=== PATIENT | female | born 1970 | race Caucasian/White ===

== ENCOUNTER 2021-11-05 09:17 | Outpatient (CLI) | payer MEDICAID, SELFPAY ==
--- NOTE | 2021-11-05 09:33 | XR_ITS ---
WS: [id number] XR cervical spine 3V* [id number] REASON FOR EXAM: chronic neck pain FINDINGS: Relatively normal cervical spine curvature. No vertebral body abnormality. Normal odontoid. Mild narrowing of the C4-C5 disc space with small anterior and uncinate osteophytes. Moderate narrowing of the C5-C6 disc space with small anterior and uncinate osteophytes. There is 2 mm of anterolisthesis of C5 in relation to C4 and C6 in relation to C5. Normal facet joint alignment. Mild degenerative facet changes C5-C7. XR/XR cervical spine 3V* [id number] IMPRESSION: Degenerative spondylosis as above.
--- NOTE | 2021-11-05 09:33 | XR_ITS ---
WS: [id number] XR thoracic spine 2V [id number] REASON FOR EXAM: chronic thoracic back pain FINDINGS: Relatively normal thoracic spine curvature. No significant vertebral body abnormality. Mild narrowing of the disc spaces with endplate sclerosis and small marginal osteophytes in the upper and mid thoracic spine. XR/XR thoracic spine 2V [id number] IMPRESSION: Degenerative spondylosis in the mid and upper thoracic spine.
== END 2021-11-05 09:18 | disposition home or self-care (01) ==
LOC: RAD 09:20
PROVIDERS: PCP Family Medicine; Visit Provider Family Medicine
DX: M47.814 Spondylosis without myelopathy or radiculopathy, thoracic region (principal); M47.812 Spondylosis without myelopathy or radiculopathy, cervical region
CPT/HCPCS: 72040; 72070

== ENCOUNTER → 2021-11-26 11:52 | Outpatient (BNVA) | payer MEDICAID, SELFPAY | PROVIDERS: PCP Family Medicine; Visit Provider Anesthesiology Pain Medicine | DX: M54.16 Radiculopathy, lumbar region (principal); M54.6 Pain in thoracic spine; G89.29 Other chronic pain; M54.12 Radiculopathy, cervical region; M47.812 Spondylosis without myelopathy or radiculopathy, cervical region | CPT/HCPCS: 72110 ==

== ENCOUNTER → 2022-01-07 09:42 | Outpatient (BNVA) | payer MEDICAID, SELFPAY | PROVIDERS: PCP Family Medicine; Visit Provider Family Medicine | DX: H69.82 Other specified disorders of Eustachian tube, left ear (principal); I25.5 Ischemic cardiomyopathy | CPT/HCPCS: 80053; 80061; 82728; 83550; 83735; 85025 ==

== ENCOUNTER 2022-01-20 15:17 | Emergency (ER) | payer MEDICAID, SELFPAY ==
[2022-01-20 15:25] VITALS: BP 130/79; PULSE 111; RESP 16; TEMP 36.8; O2SAT 96; BMI 30.8
--- NOTE | 2022-01-20 16:00 | ED_ITS ---
HPI - Back Pain/Injury General: Chief Complaint: Back Pain/Injury Stated Complaint: back pain Time Seen by Provider: 01/20/22 15:31 History of Present Illness: Patient is a 51-year-old female comes to the ED with low back pain. Patient has chronic back pain and sees Dr. Byers with pain management. He is in the process of getting patient set up with some out patient imaging of spine. Today she was at her doctor's office and getting an EKG done and when she went to stand up she pulled muscle in her lower back. She now has 10 out of 10 pain on the right side of lower back. Pain radiates down into right leg. Denies any bladder or bowel incontinence, pelvic anesthesia or any weakness to lower extremities. Associated symptoms: Deny abdominal pain, chills, dysuria, fatigue, fever(s), hematuria, nausea or vomiting Review of Systems Const: Denies: fever(s), chills or fatigue Eyes: Denies: change in vision or eye discomfort ENMT: Denies: throat pain, odynophagia, nasal discharge or nasal congestion Card: Denies: chest pain, palpitations, edema, swelling of feet/ankles, d yspnea on exertion or orthopnea Resp: Denies: dyspnea, productive cough or non-productive cough GI: Denies: abdominal pain, nausea, vomiting, diarrhea, constipation or hematochezia : Denies: flank pain, dysuria or hematuria Musc: Reports: back pain; Denies: neck pain or extremity swelling Skin/Breast: Denies: rash or new lesions Neuro: Denies: headache(s), numbness in extremities or weakness in extremities PFSH ED PFSH: Medical History Acute on chronic respiratory failure with hypoxia and hypercapnia COPD (chronic obstructive pulmonary disease) Ischemic cardiomyopathy MDD (major depressive disorder) Non Hodgkin's lymphoma In remission since 2004 NSTEMI (non-ST elevated myocardial infarction) Osteoarthritis Osteopenia Psychiatric care Tachycardia Surgical History History of aortic valve replacement History of coronary artery bypass graft x 3 History of lymph node biopsy History of mitral valve replacement Family History Other Cancer Chronic kidney disease (CKD) Hyperlipidemia Hypertension Psychiatric illness Stroke Suicide Social History Smoking and tobacco status: former smoker Quit status (tobacco): has quit using tobacco Year quit tobacco: 2017 Second hand smoke exposure: No Smoking risk assessment/counseling performed?: No Alcohol intake: current Alcohol intake frequency: holidays/special occasions only Alcohol type: hard liquor Desire information about alcohol rehabilitation?: No Counseling given: No Desire information about substance/drug rehabilitation?: No Counseling given: No Physical Exam Const: COMMON NORMALS: no acute distress, patient oriented x3 and alert GENERAL APPEARANCE: cooperative HENMT: COMMON NORMALS: normocephalic HEAD & SCALP: normocephalic MOUTH: Normal oral and palatal mucosa present THROAT: posterior oropharynx normal and uvula midline Neck/C-Spine: COMMON NORMALS: supple GENERAL: Yes normal visual inspection Resp: COMMON NORMALS: normal respiratory effort, No retractions, No use of accessory muscles and clear to auscultation bilaterally AUSCULTATION: clear to auscultation bilaterally Cardio: COMMON NORMALS: regular rate, regular rhythm, S1 normal heart sound present, S2 normal heart sound present, No gallops present (Cardio), No clicks present (Cardio), No murmurs present (Cardio) and Peripheral pulses 2+ throughout RATE: regular rate RHYTHM: regular rhythm HEART SOUNDS: S1 normal heart sound present and S2 normal heart sound present PERIPHERAL PULSES: Peripheral pulses 2+ throughout GI: COMMON NORMALS: Normal to inspection, nondistended, normoactive bowel sounds present, Soft to palpation, non-tender and no masses PALPATION: Yes Soft to palpation : COMMON NORMALS: Yes no CVA tenderness BLADDER/KIDNEY EXAM: Yes no CVA tenderness Back/Pelvis: COMMON NORMALS: no CVA tenderness LUMBAR SPINE/LOWER BACK: Yes pain with ROM, No lumbar spinal tenderness and Yes paraspinal muscle tenderness Lumbar paraspinal muscle tenderness: right Right lumbar paraspinal muscle tenderness: L4 and L5 Extremity: COMMON NORMALS: normal to inspection Neuro: COMMON NORMALS: patient oriented x3 SENSORIUM/ORIENTATION: Yes alert GAIT: Yes Normal gait present Skin: GENERAL SKIN EXAM: dry skin Course Vital Signs: Vital signs: Vital Signs Temperature 98.2 F 01/20/22 15:25 Pulse Rate 111 H 01/20/22 15:25 Respiratory Rate 16 01/20/22 16:43 Blood Pressure 130/79 01/20/22 15:25 Pulse Oximetry 96 01/20/22 15:25 Oxygen Delivery Me thod 01/20/22 15:25 MDM - Back Pain/Injury Medical Decision Making Patient is a 51-year-old female comes to the ED with low back pain. Patient has chronic back pain and sees Dr. Byers with pain management. He is in the process of getting patient set up with some out patient imaging of spine. Today she was at her doctor's office and getting an EKG done and when she went to stand up she pulled muscle in her lower back. She now has 10 out of 10 pain on the right side of lower back. Pain radiates down into right leg. Denies any bladder or bowel incontinence, pelvic anesthesia or any weakness to lower extremities. Vitals are stable. Patient has no lumbar spinal tenderness. Has pain with range of motion of the lumbar spine. She does have some right paraspinal muscle tenderness to palpation. Rest of exam is benign. Patient was given a dose of morphine, Decadron and Norflex here in the ED. Her symptoms improved and she was feeling a lot better. She was given a dose of Toradol here in the ED as well and diagnosed with low back pain rating down the leg. She was sent home with a prescription for Celebrex, Medrol Dosepak and a muscle relaxer. Told to follow-up with her PCP or Dr. Byers pain management or neck scheduled appointment. Return to ED precautions given. Patient understood and agreed with plan. Discharge Plan Discharge Patient Disposition: Home Clinical Impression: Low back pain radiating down leg Condition: Stable Prescriptions: New Celebrex 100 mg capsule 100 mg PO BID PRN (Reason: pain) Qty: 30 0RF Medrol (Dane) 4 mg tablets,dose pack See Rx Instructions .ROUTE .COMPLEX Qty: 21 0RF Rx Instructions: orally per package directions methocarbamol 750 mg tablet 750 mg PO Q8H PRN (Reason: muscle spasms and pain) Qty: 30 0RF No Action (DME) Portable O2 See Rx Instructions .Route .MEDSUPPLY Qty: 1 0RF Rx Instructions: As directed budesonide-formoterol [Symbicort] 160-4.5 mcg/actuation HFA aerosol inhaler 2 puff inhalation BID Qty: 10.2 2RF Rx Instructions: 340 B Spiriva with HandiHaler 18 mcg capsule, w/inhalation device 1 cap inhalation DAILY Qty: 60 2RF Rx Instructions: puncture 1 cap using device; one dose = 2 inhalations 340 B aspirin [Adult Low Dose Aspirin] 81 mg tablet,delayed release (DR/EC) 81 mg PO DAILY furosemide 40 mg tablet 40 mg PO DAILY Qty: 90 3RF magnesium oxide 400 mg magnesium tablet 400 mg PO DAILY Qty: 90 3RF metoprolol succinate 50 mg tablet extended release 24 hr 50 mg PO BID Qty: 180 3RF Entresto 49-51 mg tablet 1 tab PO BID Qty: 180 3RF atorvastatin 80 mg tablet 80 mg PO DAILY Qty: 90 3RF mirtazapine 7.5 mg tablet 7.5 mg PO .HS Qty: 30 1RF fluticasone propionate [Flonase Allergy Relief] 50 mcg/actuation spray,suspension 2 spray intranasal DAILY Qty: 16 2RF Rx Instructions: administer into each nostril omeprazole 20 mg capsule,delayed release(DR/EC) 20 mg PO DAILY Qty: 30 0RF sertraline [Zoloft] 100 mg tablet 100 mg PO DAILY Qty: 30 1RF ferrous gluconate 324 mg (38 mg iron) tablet 324 mg PO BID Qty: 180 0RF quetiapine 100 mg tablet See Rx Instructions .ROUTE .COMPLEX Qty: 30 1RF Dose Instruction: TAKE ONE TABLET BY MOUTH AT BEDTIME Rx Instructions: TAKE ONE TABLET BY MOUTH AT BEDTIME Discharge Orders: Discharge ED (Routine); Ordered 01/20/22 Ordered By: Ubaldo Arcos Referrals: Humera Meza DO [Primary Care Provider] - Discharge Diet: Regular Discharge Activity: Increase activity as tolerated Patient Instructions: Low Back Strain (ED), Lumbar Radiculopathy (ED) Activity Restrictions/Additional Instructions: Follow-up with medical provider as directed in the next 5 to 7 days for reevaluation. Take medications as prescribed. Return to the ER or your medical provider if condition worsens. Please read and understand discharge instruct ions. Thank you for choosing [facility] for your healthcare needs today. Please realize this is an emergency room and that we are providing you with a medical screening exam and this may not be complete and all inclusive of all the testing and or work up that you may need to determine your ailment or severity of your illness. It is very important that you follow up as instructed or that you return to the Emergency Department should you have concerns or if your condition changes or worsens in any way. Coding Level of Care Code ED Property Economist for [facility] [place] Exam Comprehensive
[2022-01-20 16:43] VITALS: RESP 16
[2022-01-20] MEDS: dexamethasone 10 mg/mL INJ IVP (16:43)
[2022-01-20] MEDS: morphine 4 mg/mL SDV 1 mL IVP (16:43)
[2022-01-20] MEDS: orphenadrine 30 mg/mL Inj 2 mL 60 MG IVP (16:44)
[2022-01-20] MEDS: ketorolac 30 mg/mL INJ IVP (17:43)
== END 2022-01-20 17:53 | disposition home or self-care (01) ==
PROVIDERS: Emergency Provider Physician Assistant; PCP Family Medicine
DX: M54.50 Low back pain, unspecified (principal); Z79.82 Long term (current) use of aspirin; J44.9 Chronic obstructive pulmonary disease, unspecified; Z85.72 Personal history of non-Hodgkin lymphomas; Z95.1 Presence of aortocoronary bypass graft; I25.2 Old myocardial infarction; Z87.891 Personal history of nicotine dependence
CPT/HCPCS: 96374; 96375; 99284; J1100; J1885; J2270; J2360

== ENCOUNTER 2022-01-29 20:26 | Emergency (ER) | payer MEDICAID, SELFPAY ==
[2022-01-29 20:30] VITALS: PULSE 110; RESP 16; TEMP 36.7; O2SAT 97; BMI 30.4
--- NOTE | 2022-01-29 20:52 | W.ED.NECK ---
HPI - Neck Pain/Injury General: Chief Complaint: Neck Pain/Injury Stated Complaint: neck pain Time Seen by Provider: 01/29/22 20:48 History of Present Illness: 51-year-old female comes in today for complaints of exacerbation of chronic neck pain. Patient reports being without medication for her chronic pain. And is waiting to get into pain management. Patient appears in moderate to severe pain. Patient is guarded with movement of the neck. Patient denies any fever or vomiting. Patient is scheduled for further evaluation of the neck with a CT scan and production painter. Patient denies any recent falls or injury. Patient appears nontoxic. Associated symptoms: Denies nausea Review of Systems Const: Denies: fever(s) Resp: Denies: dyspnea GI: Denies: nausea or vomiting Musc: Reports: neck pain PFSH ED PFSH: Medical History (Updated 01/29/22 @ 21:00 by TU Lance) Acute on chronic respiratory failure with hypoxia and hypercapnia CAD (coronary artery disease) COPD (chronic obstructive pulmonary disease) Hyperlipidemia Ischemic cardiomyopathy MDD (major depressive disorder) Non Hodgkin's lymphoma In remission since 2004 Osteoarthritis Osteopenia Psychiatric care Tachycardia Surgical History (Updated 01/23/22 @ 18:10 by Rachna Ramos MD) History of aortic valve replacement History of coronary artery bypass graft x 3 History of lung biopsy History of lymph node biopsy Status post mitral valve annuloplasty Family History Other Cancer Chronic kidney disease (CKD) Hyperlipidemia Hypertension Psychiatric illness Stroke Suicide Social History Smoking and tobacco status: former smoker Quit status (tobacco): has quit using tobacco Year quit tobacco: 2017 Second hand smoke exposure: No Smoking risk assessment/counseling performed?: No Alcohol intake: current Alcohol intake frequency: holidays/special occasions only Alcohol type: hard liquor Desire information about alcohol rehabilitation?: No Counseling given: No Desire information about substance/drug rehabilitation?: No Counseling given: No Physical Exam Const: COMMON NORMALS: alert HENMT: COMMON NORMALS: atraumatic HEAD & SCALP: atraumatic Eye: GENERAL EYE: appearance normal, both eyes and all related structures Neck/C-Spine: CERVICAL SPINE: No Cervical spine tenderness and Yes Paracervical muscle tenderness Resp: COMMON NORMALS: normal respiratory effort Cardio: COMMON NORMALS: regular rate RATE: regular rate GI: AUSCULTATION: Yes normoactive bowel sounds : COMMON NORMALS: Yes no CVA tenderness BLADDER/KIDNEY EXAM: Yes no CVA tenderness Back/Pelvis: COMMON NORMALS: no CVA tenderness Extremity: COMMON NORMALS: full ROM Neuro: SENSORIUM/ORIENTATION: Yes alert Skin: COMMON NORMALS: turgor normal GENERAL SKIN EXAM: turgor normal Course Vital Signs: Vital signs: Vital Signs Temperature 98.0 F 01/29/22 20:30 Pulse Rate 110 H 01/29/22 20:30 Respiratory Rate 16 01/29/22 20:30 Pulse Oximetry 97 01/29/22 20:30 Oxygen Delivery Me thod 01/29/22 20:30 MDM - Neck Pain/Injury Medical Decision Making 51-year-old female comes in today with uncontrolled neck pain. Patient has been using [id number]-[id number] Tylenol with minimal relief. Patient has been prescribed tramadol in the past but it does not work for her. Patient is scheduled to follow-up with production painter and has imaging scheduled for the . On exam patient has muscle tenderness of the cervical spine. Patient has decreased range of motion due to pain. Respirations are even lungs are clear to auscultation. Abdomen soft nontender. Bilateral tympanic membranes are dull without any redness and decreased mobility. Differential diagnosis includes but not limited to exacerbation of chronic pain, intervertebral disc disease, facet arthropathy, malingering. Patient was given 10 mg of dexamethasone for inflammation. Patient was also given a dose of ketorolac for further pain and inflammation. Patient was written for a prescription for hydrocodone 1 every 6 hours as needed for pain and discomfort number 14 tablets with no refills. Patient reported understanding of care plan and need for follow-up or return to the ER. Patient was also written for diclofenac 75 mg 1 tablet twice a day and instructed to only use the medication with acetaminophen and no other pain medication unless directed by your healthcare provider. Discharge Plan Discharge Patient Disposition: Home Clinical Impression: Neck pain Otitis media, serous Qualifiers: Chronicity: unspecified Laterality: bilateral Qualified Code(s): H65.93 - Unspecified nonsuppurative otitis media, bilateral Condition: Stable Prescriptions: New diclofenac sodium 75 mg tablet,delayed release (DR/EC) 75 mg PO BID Qty: 20 0RF hydrocodone-acetaminophen 5-325 mg tablet 1 tab PO Q6H PRN (Reason: pain) Qty: 14 0RF No Action (DME) Portable O2 See Rx Instructions .Route .MEDSUPPLY Qty: 1 0RF Rx Instructions: As directed budesonide-formoterol [Symbicort] 160-4.5 mcg/actuation HFA aerosol inhaler 2 puff inhalation BID Qty: 10.2 2RF Rx Instructions: 340 B Spiriva with HandiHaler 18 mcg capsule, w/inhalation device 1 cap inhalation DAILY Qty: 60 2RF Rx Instructions: puncture 1 cap using device; one dose = 2 inhalations 340 B aspirin [Adult Low Dose Aspirin] 81 mg tablet,delayed release (DR/EC) 81 mg PO DAILY furosemide 40 mg tablet 40 mg PO DAILY Qty: 90 3RF magnesium oxide 400 mg magnesium tablet 400 mg PO DAILY Qty: 90 3RF metoprolol succinate 50 mg tablet extended release 24 hr 50 mg PO BID Qty: 180 3RF Entresto 49-51 mg tablet 1 tab PO BID Qty: 180 3RF atorvastatin 80 mg tablet 80 mg PO DAILY Qty: 90 3RF mirtazapine 7.5 mg tablet 7.5 mg PO .HS Qty: 30 1RF fluticasone propionate [Flonase Allergy Relief] 50 mcg/actuation spray,suspension 2 spray intranasal DAILY Qty: 16 2RF Rx Instructions: administer into each nostril omeprazole 20 mg capsule,delayed release(DR/EC) 20 mg PO DAILY Qty: 30 0RF sertraline [Zoloft] 100 mg tablet 100 mg PO DAILY Qty: 30 1RF ferrous gluconate 324 mg (38 mg iron) tablet 324 mg PO BID Qty: 180 0RF quetiapine 100 mg tablet See Rx Instructions .ROUTE .COMPLEX Qty: 30 1RF Dose Instruction: TAKE ONE TABLET BY MOUTH AT BEDTIME Rx Instructions: TAKE ONE TABLET BY MOUTH AT BEDTIME Celebrex 100 mg capsule 100 mg PO BID PRN (Reason: pain) Qty: 30 0RF Medrol (Dane) 4 mg tablets,dose pack See Rx Instructions .ROUTE .COMPLEX Qty: 21 0RF Rx Instructions: orally per package directions methocarbamol 750 mg tablet 750 mg PO Q8H PRN (Reason: muscle spasms and pain) Qty: 30 0RF Discharge Orders: Discharge ED (Routine); Ordered 01/29/22 Ordered By: Lev Watt Referrals: Humera Meza DO [Primary Care Provider] - Discharge Diet: Usual diet Discharge Activity: Increase activity as tolerated Activity Restrictions/Additional Instructions: Use medication as prescribed. Take diclofenac 75 mg 1 tablet twice a day for the next 10 days. This will help with pain and inflammation. Use acetaminophen as needed for breakthrough pain. Use hydrocodone 1 tablet every 6 hours as needed for severe pain. Only use hydrocodone if you are not able to control the pain with diclofenac or acetaminophen. Do not use any other pain medications with these medications. You may use [id number] menthol rubs for further pain relief. Or ice or heat pad for further pain relief. Follow-up with primary care or specialist for further instruction and evaluation and treatment. Return to ER for new concerns. Coding Level of Care Code ED Technical Sales Support Specialist for [facility] [place]
[2022-01-29] MEDS: HYDROcodone-acetaminophen 10-325 mg Tablet 1 TAB PO (21:00)
[2022-01-29] MEDS: ketorolac 30 mg/mL INJ IM (21:01)
[2022-01-29] MEDS: dexamethasone 10 mg/mL INJ IM (21:01)
== END 2022-01-29 21:11 | disposition home or self-care (01) ==
PROVIDERS: Emergency Provider Nurse Practitioner Family; PCP Family Medicine
DX: M54.2 Cervicalgia (principal); H65.93 Unspecified nonsuppurative otitis media, bilateral; Z79.82 Long term (current) use of aspirin; Z87.891 Personal history of nicotine dependence; I25.10 Atherosclerotic heart disease of native coronary artery without angina pectoris; J44.9 Chronic obstructive pulmonary disease, unspecified; E78.5 Hyperlipidemia, unspecified; Z85.72 Personal history of non-Hodgkin lymphomas; Z95.1 Presence of aortocoronary bypass graft
CPT/HCPCS: 96372; 99284; J1100; J1885

== ENCOUNTER 2022-02-04 15:17 | Outpatient (CLI) | payer MEDICAID, SELFPAY ==
--- NOTE | 2022-02-04 16:00 | CT_ITS ---
WS: [id number] CT CERVICAL SPINE HISTORY: M54.12 - Radiculopathy, cervical region TECHNIQUE: Contiguous 2.5 mm axial imaging performed through the entire cervical spine. Sagittal and coronal reformats also performed. All CT scans at [facility] use at least one of these dose o ptimization techniques: automated exposure control; mA and/or kV adjustment per patient size (include s targeted exams where dose is matched to clinical indication); or iterative reconstruction. DLP: 289.47 mGy.cm COMPARISON: Cervical radiographs 11/05/2021 C5 retrolisthesis by 2.4 mm. The remaining cervical vertebral bodies are normally aligned. Mild disc space narrowing at C5-6. No cervical spine fracture. Craniocervical junction is normally aligned. Lat eral masses of C1 and C2 are aligned and the odontoid intact. C2-C3: Shallow central disc protrusion. No stenosis. C3-C4: Small central disc protrusion with no stenosis. C4-C5: Normal. C5-C6: Osteophytic ridging around the vertebral bodies with mild encroachment along the ventral theca l sac. No high-grade stenosis. C6-C7: Broad-based RIGHT paracentral disc protrusion. No significant encroachment or stenosis. Mild f acet joint arthritis. C7-T1: Small central disc protrusion. Biapical pleural thickening greatest on the RIGHT with paraseptal emphysematous disease. CT/CT cervical spin wo con* [id number] IMPRESSION: 1. No high-grade central or foraminal stenosis. 2. C5 retrolisthesis by 2.4 mm with disc space narrowing at C5-6. 3. Small central disc protrusions at C2-3 and C3-4. 4. Broad-based RIGHT paracentral disc protrusion at C6-7. No significant steno sis.
== END 2022-02-04 15:18 | disposition home or self-care (01) ==
LOC: RAD 15:18
PROVIDERS: PCP Family Medicine; Visit Provider Anesthesiology Pain Medicine
DX: M54.12 Radiculopathy, cervical region (principal); M50.21 Other cervical disc displacement, high cervical region
CPT/HCPCS: 72125

== ENCOUNTER 2022-03-09 06:10 | Outpatient (CLI) | payer MEDICAID, SELFPAY ==
--- NOTE | 2022-03-09 06:30 | USCV_ITS ---
Nurys Patel Age: 51 Gender: F : 1970 Exam Date: 03/09/2022 06:24 Ordering Phys: Rachna Ramos MD ([email or web address]) Technologist: Marquis Rodriguez Exam Location: [facility] [place] Indication: History of bio AVR, mitral valve repair BP: 130 / 85 HR: 98 Rhythm: Sinus Technical Quality: Adequate MEASUREMENTS (Male / Female) Normal Values 2D ECHO LV Diastolic Diameter PLAX 3.2 cm 4.2 - 5.9 / 3.9 - 5.3 cm LV Systolic Diameter PLAX 1.9 cm IVS Diastolic Thickness 1.1 cm 0.6 - 1.0 / 0.6 - 0.9 cm IVS Systolic Thickness 1.1 cm LVPW Diastolic Thickness 1.0 cm 0.6 - 1.0 / 0.6 - 0.9 cm LVPW Systolic Thickness 1.4 cm LVOT Diameter 1.8 cm LV Ejection Fraction 2D Teich 70.9 % LV Ejection Fraction MOD 2C 57.4 % LV Ejection Fraction 2C AL 58.2 % LA Diameter 3.1 cm IVC Diameter 1.5 cm M-MODE Aortic Annulus Diameter 2.5 cm LA Ao Ratio MM 1.4 MV E Point Septal Separation 0.8 cm DOPPLER AV Peak Velocity 279.0 cm/s LVOT Peak Velocity 94.0 cm/s AV Area Cont Eq vti 0.9 cm squared AV Area Cont Eq pk 0.8 cm squared MV Area PHT 5.0 cm squared Mitral E to A Ratio 1.5 MV E' Velocity 81.0 cm/s Mitral E to MV E' Ratio 11.7 Mitral E to LV E' Lateral Ratio 10.3 Mitral E to LV E' Septal Ratio 13.7 TR Peak Velocity 213.0 cm/s TR Peak Gradient 18.1 mmHg TV Peak E Velocity 113.0 cm/s Right Atrial Pressure 3.0 mmHg Pulmonary Artery Systolic Pressu 21.1 mmHg RV Acceleration Time 0.1 s FINDINGS Left Ventricle Normal left ventricular cavity size and systolic function. Normal left ventricular wall thickness. Left ventricular ejection fraction is estimated at 55%. No regional wall motion abnormalities. Abnormal (paradoxical) septal motion consistent with postoperative status. Right Ventricle Normal right ventricular size and systolic function. Right ventricular systolic pressure 29 mmHg. Right Atrium Normal right atrial size. Left Atrium Mildly increased left atrial size. Mitral Valve Severe mitral annular calcification. Moderately thickened mitral valve. Status post mitral valve repair. Trace mitral valve regurgitation. Aortic Valve S/p bioprosthetic aortic valve replacement. Peak velocity 2.5 m/s, peak gradient 26 m mercury, mean gradient 13 mmHg. No significant valvular or perivalvular regurgitation. Tricuspid Valve Structurally normal tricuspid valve. Trace tricuspid valve regurgitation. Pulmonic Valve Pulmonic valve not well visualized. No pulmonary valve stenosis. Pericardium No pericardial effusion. Aorta Normal-sized aortic root. IVC Inferior vena cava not visualized. CONCLUSIONS 1. Normal left ventricular cavity size and systolic function. Left ventricular ejection fraction is estimated at 55 %. No regional wall motion abnormalities. 2. S/p bioprosthetic aortic valve replacement. Peak velocity 2.5 m/s, peak gradient 26 m mercury, mean gradient 13 mmHg. No significant valvular or perivalvular regurgitation. 3. Status post mitral valve repair. Trace mitral valve regurgitation. 4. No prior similar studies to compare. Rachna Ramos MD (Electronically Signed) Final Date: 15 March 2022 18:51 S
== END 2022-03-09 06:11 | disposition home or self-care (01) ==
LOC: RAD 06:11
PROVIDERS: PCP Family Medicine; Visit Provider Internal Medicine Cardiovascular Disease
DX: I25.5 Ischemic cardiomyopathy (principal); R06.02 Shortness of breath; Z95.2 Presence of prosthetic heart valve; I34.0 Nonrheumatic mitral (valve) insufficiency
CPT/HCPCS: 93306

== ENCOUNTER 2022-05-13 11:16 | Outpatient (RCR) | payer MEDICAID, SELFPAY | END 2022-05-25 23:59 | disposition home or self-care (01) | LOC: SPT 11:16 | PROVIDERS: PCP Family Medicine; Visit Provider Anesthesiology Pain Medicine | DX: M54.6 Pain in thoracic spine (principal); G89.29 Other chronic pain | CPT/HCPCS: 97110; 97162 ==

== ENCOUNTER 2022-05-26 06:00 | Outpatient (RCR) | payer MEDICAID, SELFPAY | END 2022-06-25 23:59 | disposition home or self-care (01) | LOC: SPT 06:00 | PROVIDERS: PCP Family Medicine; Visit Provider Anesthesiology Pain Medicine | DX: M54.6 Pain in thoracic spine (principal); G89.29 Other chronic pain | CPT/HCPCS: 97110 ==

== ENCOUNTER 2022-05-31 13:59 | Outpatient (CLI) | payer MEDICAID, SELFPAY ==
--- NOTE | 2022-05-31 14:09 | MM_ITS ---
WS: [id number] BILATERAL 3D TOMOSYNTHESIS DIGITAL SCREENING MAMMOGRAPHY WITH CAD CLINICAL INFORMATION: SCREENING HISTORY: Screening mammogram. No current complaints. COMPARISON: None. TECHNIQUE: Bilateral CC and MLO views. FINDINGS: Chronic calcified port LEFT upper chest with calcified tubing Scattered fibroglandular densities bilaterally. No suspicious focal mass, asymmetry, calcifications, or architectural distortion. No evidence of malignancy. Vascular calcification MM/[place] [id number] IMPRESSION: BI-RADS: 2-Benign FOLLOW UP: 1 Year Follow-up Recommend return to annual screening mammography.
== END 2022-05-31 14:00 | disposition home or self-care (01) ==
LOC: RAD 14:02
PROVIDERS: PCP Family Medicine; Visit Provider Family Medicine
DX: Z12.31 Encounter for screening mammogram for malignant neoplasm of breast (principal)
CPT/HCPCS: 77063; 77067

== ENCOUNTER 2022-06-26 06:00 | Outpatient (RCR) | payer MEDICAID, SELFPAY | END 2022-07-25 23:59 | disposition home or self-care (01) | LOC: SPT 06:00 | PROVIDERS: PCP Family Medicine; Visit Provider Anesthesiology Pain Medicine | DX: M54.6 Pain in thoracic spine (principal); G89.29 Other chronic pain | CPT/HCPCS: 97110 ==

== ENCOUNTER 2022-07-29 03:05 | Emergency (ER) | payer MEDICAID, SELFPAY ==
[2022-07-29 03:06] VITALS: BP 117/80; PULSE 98; RESP 16; TEMP 36.9; O2SAT 94
[2022-07-29 03:11] VITALS: BP 66/53; PULSE 90; RESP 14; O2SAT 95
--- NOTE | 2022-07-29 03:13 | XRR_ITS ---
PROCEDURE INFORMATION: Exam: XR Left Ankle Exam date and time: 07/29/2022 3:47 AM Age: 51 years old Clinical indication: Injury or trauma; Fall; Blunt trauma; Left; Patient HX: Patient fell getting out of her vehicle and twisted ankle as she landed on the ground. C/O ankle pain with obvious contusion to fibular malleolus. TECHNIQUE: Imaging protocol: Radiologic exam of the left ankle. Views: 3 or more views. COMPARISON: No relevant prior studies available. FINDINGS: Bones/joints: Nondisplaced acute fracture of the lateral malleolus. No dislocation. Mild talonavicular DJD. Soft tissues: Slight lateral ankle soft tissue swelling. XR/XR ankle LT min 3V* [id number] IMPRESSION: Lateral malleolar acute fracture.
--- NOTE | 2022-07-29 03:15 | CTR_ITS ---
PROCEDURE INFORMATION: Exam: CT Head Without Contrast Exam date and time: 07/29/2022 3:54 AM Age: 51 years old Clinical indication: Injury or trauma; Fall; Blunt trauma (contusions or hematomas); Patient HX: Patient fell getting out of her vehicle and struck frontal on ground. Hematoma to RT frontal. C/O head pain. ; Additional info: Fall/trauma TECHNIQUE: Imaging protocol: Computed tomography of the head without contrast. Radiation optimization: All CT scans at this facility use at least one of these dose optimization techniques: automated exposure control; mA and/or kV adjustment per patient size (includes targeted exams where dose is matched to clinical indication); or iterative reconstruction. REPORTING DATA: Count of CT and Cardiac NM exams in prior 12 months: This patient has received [address] and 0 known cardiac nuclear medicine studies in the 12 months prior to the current study. COMPARISON: CT cervical spin wo con* [id number] 02/04/2022 3:29 PM RADIATION DOSE METRICS: Total DLP (mGy-cm): 823.28 FINDINGS: Brain: No focal hemorrhage or midline shift is identified. Slight age-related change. A few scattered old lacunes are likely. Cerebral ventricles: No ventriculomegaly or evidence of acute hydrocephalus. Paranasal sinuses: The partially assessed sinuses are grossly clear. Mastoid air cells: Visualized mastoid air cells are well aerated. Bones/joints: No displaced skull fracture is noted. Soft tissues: Mild right forehead swelling. CT/CT head wo con* [id number] IMPRESSION: No acute intracranial abnormality.
--- NOTE | 2022-07-29 03:17 | ED_ITS ---
HPI - Fall General: Chief Complaint: Fall Stated Complaint: FALL Time Seen by Provider: 07/29/22 03:07 Source: patient and EMS Mode of arrival: EMS Limitations: no limitations History of Present Illness: 51-year-old female states she was getting out of her car just before arrival she states she had twisted her left ankle and fell. She states that she does have ankle pain she rates a 9 out of 10. She does have swelling to her ankle with pain she rates a 7 out of 10 she struck her head as well has an abrasion to her head she has a mild headache she denies any neck pain denies any hip pain denies any chest or abdominal pain. Associated symptoms-after fall: Reports headache(s); Denies abdominal pain, chest pain or neck pain Review of Systems Const: Denies: fever(s), chills, body aches or change in appetite Eyes: Denies: blurry vision or eye discomfort ENMT: Denies: throat pain or dental pain Card: Denies: chest pain Resp: Denies: dyspnea GI: Denies: abdominal pain, nausea, vomiting or diarrhea Musc: Reports: extremity pain; Denies: neck pain or back pain Skin/Breast: Denies: rash Neuro: Reports: headache(s) PFSH ED PFSH: Medical History Acute on chronic respiratory failure with hypoxia and hypercapnia CAD (coronary artery disease) COPD (chronic obstructive pulmonary disease) Hyperlipidemia Ischemic cardiomyopathy MDD (major depressive disorder) Non Hodgkin's lymphoma In remission since 2004 Osteoarthritis Osteopenia Psychiatric care Tachycardia Surgical History History of aortic valve replacement History of coronary artery bypass graft x 3 History of lung biopsy History of lymph node biopsy Status post mitral valve annuloplasty Family History Other Cancer Chronic kidney disease (CKD) Hyperlipidemia Hypertension Psychiatric illness Stroke Suicide Social History Smoking and tobacco status: former smoker Quit status (tobacco): has quit using tobacco Year quit tobacco: 2017 Second hand smoke exposure: No Smoking risk assessment/counseling performed?: No Alcohol intake: current Alcohol intake frequency: holidays/special occasions only Alcohol type: hard liquor Desire information about alcohol rehabilitation?: No Counseling given: No Substance/Drug Use: former Desire information about substance/drug rehabilitation?: No Counseling given: No Physical Exam Const: COMMON NORMALS: no acute distress, patient oriented x3 and healthy appearing HENMT: COMMON NORMALS: normocephalic; head/scalp not atraumatic (abrasion to right forehead) HEAD & SCALP: normocephalic; not atraumatic (abrasion to right forehead) Eye: COMMON NORMALS: Equal, round and reactive pupils present, EOMs intact bilaterally and conjunctivae normal CONJUNCTIVA: Yes conjunctivae normal PUPIL: Yes Equal, round and reactive pupils present Neck/C-Spine: COMMON NORMALS: full ROM and supple CERVICAL SPINE: Yes cervical ROM normal, No pain with cervical ROM and No Cervical spine tenderness Chest: COMMONS NORMALS: normal inspection of the chest and normal palpation of entire chest wall Resp: COMMON NORMALS: normal respiratory effort, No retractions, No use of a ccessory muscles and clear to auscultation bilaterally AUSCULTATION: clear to auscultation bilaterally Cardio: COMMON NORMALS: regular rate, regular rhythm and No murmurs present (Cardio) RATE: regular rate RHYTHM: regular rhythm GI: COMMON NORMALS: Normal to inspection, nondistended, normoactive bowel sounds present, Soft to palpation, non-tender and no masses PALPATION: Yes Soft to palpation Extremity: NARRATIVE EXTREMITY EXAM: Swelling and tenderness to left lateral ankle Neuro: COMMON NORMALS: patient oriented x3, moves all extremities and no focal motor deficits Psych: COMMON NORMALS: mental status grossly normal, Normal thought process present and cooperative THOUGHT PROCESS: Normal thought process present Skin: COMMON NORMALS: no rashes or lesions noted and no wounds GENERAL SKIN EXAM: no rashes or lesions noted Course Vital Signs: Vital signs: Vital Signs Temperature 98.4 F 07/29/22 03:06 Pulse Rate 98 07/29/22 03:06 Respiratory Rate 16 07/29/22 03:06 Blood Pressure 117/80 07/29/22 03:06 Pulse Oximetry 94 07/29/22 03:06 Oxygen Delivery Me thod Room Air 07/29/22 03:06 MDM - Fall Medical Decision Making Patient presents with ankle fracture after a fall head CT here is normal she did have some hypotension likely due to the fentanyl she has no pain elsewhere no other signs of injury her head CT was normal she does have a small abrasion she is to follow-up with orthopedics and return if worsening. Medical Records I reviewed the patient's medical records. Lab Data I reviewed the patient's lab results. 07/29/22 05:01 Radiology Impressions Ankle X-Ray 07/29/22 03:13 IMPRESSION: Lateral malleolar acute fracture. Head CT 07/29/22 03:15 IMPRESSION: No acute intracranial abnormality. Chest X-Ray 07/29/22 04:47 IMPRESSION: No acute finding. Laboratory Results WBC 15.6 10^3/uL (4.0-10.0) H 07/29/22 05:01 RBC 4.16 10^6/uL (4.1-5.3) 07/29/22 05:01 Hgb 11.0 g/dL (11.5-15.3) L 07/29/22 05:01 Hct 35.0 % (37.0-47.0) L 07/29/22 05:01 MCV 84.1 fl (81-99) 07/29/22 05:01 MCH 26.4 pg (28.0-34.0) L 07/29/22 05:01 MCHC 31.4 g/dL (30.0-36.0) 07/29/22 05:01 RDW 14.9 % (12.1-15.1) 07/29/22 05:01 Plt Count 349 10^3/cmm (130-400) 07/29/22 05:01 MPV 10.5 fL (7.4-10.4) H 07/29/22 05:01 Neut % (Auto) 73.5 % 07/29/22 05:01 Lymph % (Auto) 18.1 % 07/29/22 05:01 [place] % (Auto) 6.6 % 07/29/22 05:01 Eos % (Auto) 0.6 % 07/29/22 05:01 Baso % (Auto) 0.4 % 07/29/22 05:01 Neut # (Auto) 11.49 10^3/uL (1.8-7.7) H 07/29/22 05:01 Lymph # (Auto) 2.8 10^3/uL (0.8-4.8) 07/29/22 05:01 [place] # (Auto) 1.0 10^3/uL (0.2-0.9) H 07/29/22 05:01 Eos # (Auto) 0.1 10^3/uL (0.0-0.8) 07/29/22 05:01 Baso # (Auto) 0.1 10^3/uL (0.0-0.1) 07/29/22 05:01 Nucleated RBC % (auto) 0 % 07/29/22 05:01 Nucleated RBCs # 0.0 /100WBC 07/29/22 05:01 Discharge Plan Discharge Patient Disposition: Home Clinical Impression: Ankle fracture, left, Closed head injury Condition: Stable Prescriptions: New hydrocodone-acetaminophen 5-325 mg tablet 1 tab PO Q6H PRN (Reason: pain) Qty: 14 0RF No Action (DME) Portable O2 See Rx Instructions .Route .MEDSUPPLY Qty: 1 0RF Rx Instructions: As directed aspirin [Adult Low Dose Aspirin] 81 mg tablet,delayed release (DR/EC) 81 mg PO DAILY furosemide 40 mg tablet 40 mg PO DAILY Qty: 90 3RF metoprolol succinate 50 mg tablet extended release 24 hr 50 mg PO BID Qty: 180 3RF Entresto 49-51 mg tablet 1 tab PO BID Qty: 180 3RF atorvastatin 80 mg tablet 80 mg PO DAILY Qty: 90 3RF quetiapine [Seroquel] 300 mg tablet 300 mg PO .HS Qty: 30 2RF sertraline 100 mg tablet 100 mg PO DAILY Qty: 30 2RF ferrous gluconate 324 mg (38 mg iron) tablet 324 mg PO BID Qty: 180 0RF Spiriva with HandiHaler 18 mcg capsule, w/inhalation device 1 cap inhalation DAILY Qty: 60 2RF Rx Instructions: puncture 1 cap using device; one dose = 2 inhalations 340 B omeprazole 20 mg capsule,delayed release(DR/EC) See Rx Instructions .ROUTE .COMPLEX Qty: 30 2RF Dose Instruction: take 1 capsule BY MOUTH EVERY DAY Rx Instructions: take 1 capsule BY MOUTH EVERY DAY fluticasone propionate [Flonase Allergy Relief] 50 mcg/actuation spray,suspension 2 spray intranasal DAILY Qty: 16 2RF Rx Instructions: administer into each nostril budesonide-formoterol [Symbicort] 160-4.5 mcg/actuation HFA aerosol inhaler See Rx Instructions .ROUTE .COMPLEX Qty: 10.2 2RF Dose Instruction: INHALE TWO PUFFS TWICE DAILY Rx Instructions: INHALE TWO PUFFS TWICE DAILY Discharge Orders: Discharge ED (Routine); Ordered 07/29/22 Ordered By: Michelle Cast Referrals: Dylan Guan MD [Primary Care Provider] - Geovanni Arcos DO [Physician] - 1-3 days Discharge Diet: Advance as tolerated Discharge Activity: Resume usual activity Patient Instructions: Ankle Fracture (ED), Opioid Safety Coding Level of Care Code ED 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
[2022-07-29 03:41] VITALS: BP 79/47; PULSE 89; RESP 14; O2SAT 96
[2022-07-29] MEDS: sodium chloride 0.9% 1,000 ML 999 ML IV ×2 (03:42→05:12)
[2022-07-29 04:41] VITALS: BP 83/51; PULSE 90; RESP 14; O2SAT 96
--- NOTE | 2022-07-29 04:47 | XRR_ITS ---
PROCEDURE INFORMATION: Exam: XR Chest Exam date and time: 07/29/2022 4:51 AM Age: 51 years old Clinical indication: Other: Hypotensive; Prior surgery; Surgery type: Aortic valve. Mitral valve. Cabg. Port; Patient HX: Sudden acute hypotension while in er. History of lymphoma. ; Additional info: Fall TECHNIQUE: Imaging protocol: Radiologic exam of the chest. Views: 1 view. COMPARISON: CT cervical spin wo con* [id number] 02/04/2022 3:29 PM FINDINGS: Tubes, catheters and devices: Left-sided port. Lungs: Mild COPD. Right apical scarring. Pleural spaces: Unremarkable. No pleural effusion. No pneumothorax. Heart/Mediastinum: The heart is large. Multiple heart valve replacements. Bones/joints: Median sternotomy. XR/XR chest 1V portable [id number] IMPRESSION: No acute finding.
[2022-07-29] MEDS: ketorolac 30 mg/mL INJ 15 MG IVP (05:11)
[2022-07-29 05:12] LABS: Basophils # 0.1 10^3/uL (0.0-0.1); Basophils % 0.4 %; Eosinophils # 0.1 10^3/uL (0.0-0.8); Eosinophils % 0.6 %; Lymphocytes # 2.8 10^3/uL (0.8-4.8); Lymphocytes % 18.1 %; Mean Corpuscular HGB Conc 31.4 g/dL (30.0-36.0); Mean Corpuscular Hemoglobin 26.4 pg (28.0-34.0); Mean Corpuscular Volume 84.1 fl (81-99); Mean Platelet Volume 10.5 fL (7.4-10.4); Monocytes % 6.6 %; Neutrophils # 11.49 10^3/uL (1.8-7.7); Neutrophils % 73.5 %; Nucleated Red Blood Cells % 0 %; Platelet Count 349 10^3/cmm (130-400); Red Blood Count 4.16 10^6/uL (4.1-5.3); Red Cell Distribution Width 14.9 % (12.1-15.1); White Blood Count 15.6 10^3/uL (4.0-10.0)
[2022-07-29 05:41] VITALS: BP 96/51; PULSE 91; RESP 12; O2SAT 97
[2022-07-29 06:16] VITALS: BP 94/58; PULSE 68; RESP 14; O2SAT 98
--- NOTE | 2022-07-29 07:36 | DCPLANNER ---
Addendum entered by Elaine De Leon 08/10/22 15:08: Patient had a follow up appointment scheduled with ortho - patient did attend appointment Addendum entered by Elaine De Leon 08/03/22 11:47: Patient has a follow up appointment scheduled for Thursday, August 04, 2022 at 10:[address] Lauren at ortho. Addendum entered by Elaine De Leon 07/29/22 09:51: assurance senior manager insurance received the following message from the ortho clinic regarding follow up appointment: No vm available for the pt/only one number in the chart. Dr. Lauren is irrigation engineer for foot and ankle so she will be seeing him. Original Note: assurance senior manager insurance had message to schedule a follow up appointment for patient with ortho. assurance senior manager insurance sent patients information to the front office staff at ortho. Patients information will be printed and reviewed. Clinic will call patient with appointment information.
== END 2022-07-29 06:16 | disposition home or self-care (01) ==
PROVIDERS: Emergency Provider Emergency Medicine; PCP Family Medicine
DX: S82.65XA Nondisplaced fracture of lateral malleolus of left fibula, initial encounter for closed fracture (principal); S09.8XXA Other specified injuries of head, initial encounter; Z79.4 Long term (current) use of insulin; Z87.891 Personal history of nicotine dependence; I25.10 Atherosclerotic heart disease of native coronary artery without angina pectoris; J44.9 Chronic obstructive pulmonary disease, unspecified; E78.5 Hyperlipidemia, unspecified; Z85.72 Personal history of non-Hodgkin lymphomas; Z95.1 Presence of aortocoronary bypass graft; X50.1XXA Overexertion from prolonged static or awkward postures, initial encounter
CPT/HCPCS: 29515; 70450; 71045; 73610; 85025; 96361; 96374; 99285; J1885; J7030

== ENCOUNTER 2022-08-04 11:59 | Outpatient (CLI) | payer MEDICAID, SELFPAY | END 2022-08-04 12:00 | disposition home or self-care (01) | LOC: SPT 12:00 | PROVIDERS: PCP Family Medicine; Visit Provider Podiatrist Foot & Ankle Surgery | DX: Z46.89 Encounter for fitting and adjustment of other specified devices (principal); S82.832D Other fracture of upper and lower end of left fibula, subsequent encounter for closed fracture with routine healing; X58.XXXD Exposure to other specified factors, subsequent encounter | CPT/HCPCS: 97760; L4361 ==

== ENCOUNTER → 2022-08-18 14:18 | Outpatient (BNVA) | payer MEDICAID, SELFPAY | PROVIDERS: PCP Family Medicine; Visit Provider Podiatrist Foot & Ankle Surgery | DX: S82.832A Other fracture of upper and lower end of left fibula, initial encounter for closed fracture (principal); X50.9XXA Other and unspecified overexertion or strenuous movements or postures, initial encounter | CPT/HCPCS: 73610 ==

== ENCOUNTER → 2022-09-15 14:37 | Outpatient (BNVA) | payer MEDICAID, SELFPAY | PROVIDERS: PCP Family Medicine; Visit Provider Podiatrist Foot & Ankle Surgery | DX: S82.832D Other fracture of upper and lower end of left fibula, subsequent encounter for closed fracture with routine healing (principal); W01.0XXD Fall on same level from slipping, tripping and stumbling without subsequent striking against object, subsequent encounter | CPT/HCPCS: 73610 ==

== ENCOUNTER → 2022-10-01 10:21 | Outpatient (BNVA) | payer MEDICAID, SELFPAY | PROVIDERS: PCP Family Medicine; Visit Provider Podiatrist Foot & Ankle Surgery | DX: S82.832D Other fracture of upper and lower end of left fibula, subsequent encounter for closed fracture with routine healing (principal); X50.9XXD Other and unspecified overexertion or strenuous movements or postures, subsequent encounter | CPT/HCPCS: 73610 ==

== ENCOUNTER 2022-10-17 17:06 | Emergency (ER) | payer MEDICAID, SELFPAY ==
[2022-10-17 17:16] VITALS: BP 73/56; PULSE 108; RESP 16; TEMP 36.7; O2SAT 99; BMI 28.7
--- NOTE | 2022-10-17 17:26 | ECG_ITS ---
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 Measurements Intervals Elizabeth Rate: 111 P: 74 DE: 164 QRS: 78 QRSD: 90 T: 119 QT: 348 QTc: 473 Interpretive Statements SINUS T[address] DEVIATION AND MODERATE T-WAVE ABNORMALITY, CONSIDER ANTEROLATERAL ISCHEMIA No previous ECG available for comparison Electronically Signed On 10-18-2022 21:16:18 CDT by Rachna Ramos M.D. [id number]
--- NOTE | 2022-10-17 17:26 | XRR_ITS ---
PROCEDURE INFORMATION: Exam: XR Chest Exam date and time: 10/17/2022 6:10 PM Age: 52 years old Clinical indication: Pain; Chest pressure; Additional info: Chest pain TECHNIQUE: Imaging protocol: Radiologic exam of the chest. Views: 1 view. COMPARISON: CR (CHEST, ) 07/29/2022 4:51 AM FINDINGS: Tubes, catheters and devices: Stable left [id number]-[id number]-Viat. Lungs: Emphysema. Mild atelectasis or scarring in the right lung base and right upper lobe. The lungs otherwise are clear. No consolidation. Pleural spaces: Unremarkable. No pleural effusion. No pneumothorax. Heart/Mediastinum: Hiatal hernia. Bones/joints: Sternotomy wires. Heart valve prosthesis. Atrial appendage closure device. XR/XR chest 1V portable [id number] IMPRESSION: No acute findings.
--- NOTE | 2022-10-17 17:39 | W.ED.CHESTPA ---
HPI - Chest Pain General: Chief Complaint: Chest Pain Stated Complaint: Low BP, Sharp cp when breathing Time Seen by Provider: 10/17/22 17:26 History of Present Illness: Patient presents to the ER with complaints of low blood pressure, heart for Lexiscan to be out of her chest, chest pain all has been going off and on for several days. Patient did say she went to her psychiatrist on Tuesday and they advised her to come in to be checked out but she decided to go home instead patient also says she has had a heart attack back in 2020 and she feels kind of similar to the same that she fell back then. Review of Systems General: Reports: 10 or more systems reviewed and unremarkable except in HPI and below PFSH ED PFSH: Medical History Acute on chronic respiratory failure with hypoxia and hypercapnia CAD (coronary artery disease) COPD (chronic obstructive pulmonary disease) Hyperlipidemia Ischemic cardiomyopathy MDD (major depressive disorder) Non Hodgkin's lymphoma In remission since 2004 Osteoarthritis Osteopenia Psychiatric care Tachycardia Surgical History History of aortic valve replacement History of coronary artery bypass graft x 3 History of lung biopsy History of lymph node biopsy Status post mitral valve annuloplasty Family History Other Cancer Chronic kidney disease (CKD) Hyperlipidemia Hypertension Psychiatric illness Stroke Suicide Social History Smoking and tobacco status: former smoker Quit status (tobacco): has quit using tobacco Year quit tobacco: 2017 Second hand smoke exposure: No Smoking risk assessment/counseling performed?: No Alcohol intake: current Alcohol intake frequency: holidays/special occasions only Alcohol type: hard liquor Desire information about alcohol rehabilitation?: No Counseling given: No Substance/Drug Use: former Desire information about substance/drug rehabilitation?: No Counseling given: No Physical Exam Const: COMMON NORMALS: no acute distress, average body habitus, patient oriented x3, no limitations, healthy appearing, alert and well nourished HENMT: COMMON NORMALS: normocephalic, atraumatic, hearing grossly normal bilaterally, external ears normal, Normal external nose present and moist oral mucous membranes HEAD & SCALP: normocephalic and atraumatic NOSE: Normal external nose present EXTERNAL EAR: Yes external ears normal Eye: COMMON NORMALS: Equal, round and reactive pupils present, EOMs intact bilaterally, conjunctivae normal and no scleral icterus CONJUNCTIVA: Yes conjunctivae normal PUPIL: Yes Equal, round and reactive pupils present Neck/C-Spine: COMMON NORMALS: full ROM, no lymphadenopathy, supple, no meningeal signs and no JVD Chest: COMMONS NORMALS: normal inspection of the chest and normal palpation of entire chest wall Resp: COMMON NORMALS: normal respiratory effort, No retractions, No use of accessory muscles and clear to auscultation bilaterally AUSCULTATION: clear to auscultation bilaterally Cardio: COMMON NORMALS: no JVD, regular rate, regular rhythm, S1 normal heart sound present, S2 normal heart sound present, No gallops present (Cardio), No clicks present (Cardio), No murmurs present (Cardio) and No rub (Cardio) RATE: regular rate RHYTHM: regular rhythm HEART SOUNDS: S1 normal heart sound present and S2 normal heart sound present GI: COMMON NORMALS: Normal to inspection, nondistended, normoactive bowel sounds present, Soft to palpation, non-tender, No hepatosplenomegaly present and no masses PALPATION: Yes Soft to palpation and Yes No hepatosplenomegaly present : COMMON NORMALS: Yes no CVA tenderness BLADDER/KIDNEY EXAM: Yes no CVA tenderness Back/Pelvis: COMMON NORMALS: no CVA tenderness Neuro: COMMON NORMALS: patient oriented x3 SENSORIUM/ORIENTATION: Yes alert MENINGEAL SIGNS: Yes no meningeal signs Course Vital Signs: Vital signs: Vital Signs Temperature 98.0 F 10/17/22 17:16 Pulse Rate 97 10/17/22 17:58 Respiratory Rate 18 10/17/22 17:58 Blood Pressure 96/67 10/17/22 17:58 Pulse Oximetry 97 10/17/22 17:58 Oxygen Delivery Me thod Room Air 10/17/22 17:16 MDM - Chest Pain Medical Decision Making Presents to the ER with complaints of low blood pressure, heart feels like is beating out of her chest and chest pain. Patient said this been going on for multiple days. Patient had a chest pain work-up which included lab work serial EKGs serial troponins. EKGs first showed tachycardia to 111 beats a minute and second EKG showed sinus rhythm with a first-degree AV block and 97 bpm lab work showed baseline troponin of 14 and a 2-hour troponin of 13.09 for delta of 0.9 negative. BNP of 387, otherwise lab work is essentially benign. Is felt this chest pain is not cardiac in nature. Patient will be referred back to her PCP and/or automotive heavy mechanic for further evaluation and treatment. Differential Diagnosis Unlikely acute massive pulmonary embolism, acute respiratory failure, acute myocardial infarction, cardiac arrest or sudden cardiac Medical Records I reviewed the patient's medical records. Lab Data I reviewed the patient's lab results. 10/17/22 17:42 10/17/22 17:42 Radiology Impressions Chest X-Ray 10/17/22 17:26 IMPRESSION: No acute findings. Laboratory Results WBC 12.1 10^3/uL (4.0-10.0) H 10/17/22 17:42 RBC 4.58 10^6/uL (4.1-5.3) 10/17/22 17:42 Hgb 11.9 g/dL (11.5-15.3) 10/17/22 17:42 Hct 37.7 % (37.0-47.0) 10/17/22 17:42 MCV 82.3 fl (81-99) 10/17/22 17:42 MCH 26.0 pg (28.0-34.0) L 10/17/22 17:42 MCHC 31.6 g/dL (30.0-36.0) 10/17/22 17:42 RDW 15.1 % (12.1-15.1) 10/17/22 17:42 Plt Count 341 10^3/cmm (130-400) 10/17/22 17:42 MPV 10.6 fL (7.4-10.4) H 10/17/22 17:42 Neut % (Auto) 70.6 % 10/17/22 17:42 Lymph % (Auto) 19.3 % 10/17/22 17:42 [place] % (Auto) 7.3 % 10/17/22 17:42 Eos % (Auto) 1.7 % 10/17/22 17:42 Baso % (Auto) 0.7 % 10/17/22 17:42 Neut # (Auto) 8.54 10^3/uL (1.8-7.7) H 10/17/22 17:42 Lymph # (Auto) 2.3 10^3/uL (0.8-4.8) 10/17/22 17:42 [place] # (Auto) 0.9 10^3/uL (0.2-0.9) 10/17/22 17:42 Eos # (Auto) 0.2 10^3/uL (0.0-0.8) 10/17/22 17:42 Baso # (Auto) 0.1 10^3/uL (0.0-0.1) 10/17/22 17:42 Nucleated RBC % (auto) 0 % 10/17/22 17:42 Nucleated RBCs # 0.0 /100WBC 10/17/22 17:42 Sodium 135 mmol/L (136-145) L 10/17/22 17:42 Potassium 3.5 mmol/L (3.5-5.1) 10/17/22 17:42 Chloride 95 mmol/L (98-107) L 10/17/22 17:42 Carbon Dioxide 23 mmol/L (22-29) 10/17/22 17:42 Anion Gap 20.5 (5-19) H 10/17/22 17:42 BUN 27 mg/dL (6-20) H 10/17/22 17:42 Creatinine 1.3 mg/dL (0.5-0.9) H 10/17/22 17:42 GFR Calculation 42.7 mL/min (90-130) L 10/17/22 17:42 Glucose 104 mg/dL (65-115) 10/17/22 17:42 Calculated Osmolality 285 mOsm/kg (285-295) 10/17/22 17:42 Calcium 9.2 mg/dL (8.5-10.5) 10/17/22 17:42 Total Bilirubin 0.2 mg/dL (0.15-1.2) 10/17/22 17:42 AST 17 U/L (0-32) 10/17/22 17:42 ALT 11 U/L (0-33) 10/17/22 17:42 Alkaline Phosphatase 100 U/L (35-105) 10/17/22 17:42 Troponin T Baseline 14 ng/L (0-10) H 10/17/22 17:42 Troponin T 120 Minute 13.09 ng/L (0-10) H 10/17/22 19:53 Delta Troponin T -0.91 ABS# (0-10) L 10/17/22 19:53 NT-Pro-B Natriuret Pep 387 pg/mL (0-125) H 10/17/22 17:42 Total Protein 7.1 g/dL (6.6-8.7) 10/17/22 17:42 Albumin 4.7 g/dL (3.5-5.2) 10/17/22 17:42 Globulin 2.4 g/dL (1.3-4.6) 10/17/22 17:42 EKG Data EKG 1: I personally reviewed and interpreted this EKG as follows: EKG interpretation date: 10/17/22 EKG interpretation time: 17:14 Prior EKG tracings: not available for review Interpretation: EKG showed ventricular rate 111 beats minute, AK interval 164, QRS duration a 90, QTc of 413, sinus tachycardia, ST deviation moderate T wave abnormality negative T waves in V3 456 EKG 2: I personally reviewed and interpreted this EKG as follows: EKG interpretation date: 10/17/22 EKG interpretation time: 20:07 Prior EKG tracings: available for review Interpretation: EKG showed sinus rhythm with first-degree AV block, ventricular rate 97 bpm, AK interval 210, QRS duration 92, QTc of 426, no ST-T wave changes Discharge Plan Discharge Patient Disposition: Home Clinical Impression: Atypical chest pain, Drug-induced hypotension, Heart palpitations Condition: Stable Prescriptions: No Action (DME) Portable O2 See Rx Instructions .Route .MEDSUPPLY Qty: 1 0RF Rx Instructions: As directed aspirin [Adult Low Dose Aspirin] 81 mg tablet,delayed release (DR/EC) 81 mg PO DAILY furosemide 40 mg tablet 40 mg PO DAILY Qty: 90 3RF metoprolol succinate 50 mg tablet extended release 24 hr 50 mg PO BID Qty: 180 3RF Entresto 49-51 mg tablet 1 tab PO BID Qty: 180 3RF atorvastatin 80 mg tablet 80 mg PO DAILY Qty: 90 3RF (DME) cam boot to the left NWB See Rx Instructions .Route .MEDSUPPLY Qty: 1 0RF Rx Instructions: As directed (DME) Wheel Chair See Rx Instructions .Route .MEDSUPPLY Qty: 1 0RF Rx Instructions: As directed hydrocodone-acetaminophen 7.5-325 mg tablet 1 tab PO Q8H PRN (Reason: pain) 7 Days Qty: 21 0RF quetiapine [Seroquel] 300 mg tablet 300 mg PO .HS Qty: 30 2RF sertraline 100 mg tablet 100 mg PO DAILY Qty: 30 2RF (DME) ASO to left See Rx Instructions .Route .MEDSUPPLY Qty: 1 0RF Rx Instructions: As directed ferrous gluconate 324 mg (38 mg iron) tablet 324 mg PO BID Qty: 180 0RF Spiriva with HandiHaler 18 mcg capsule, w/inhalation device 1 cap inhalation DAILY Qty: 60 2RF Rx Instructions: puncture 1 cap using device; one dose = 2 inhalations 340 B omeprazole 20 mg capsule,delayed release(DR/EC) See Rx Instructions .ROUTE .COMPLEX Qty: 30 2RF Dose Instruction: take 1 capsule BY MOUTH EVERY DAY Rx Instructions: take 1 capsule BY MOUTH EVERY DAY fluticasone propionate [Flonase Allergy Relief] 50 mcg/actuation spray,suspension 2 spray intranasal DAILY Qty: 16 2RF Rx Instructions: administer into each nostril budesonide-formoterol [Symbicort] 160-4.5 mcg/actuation HFA aerosol inhaler See Rx Instructions .ROUTE .COMPLEX Qty: 10.2 2RF Dose Instruction: INHALE TWO PUFFS TWICE DAILY Rx Instructions: INHALE TWO PUFFS TWICE DAILY hydrocodone-acetaminophen 5-325 mg tablet 1 tab PO Q6H PRN (Reason: pain) Qty: 14 0RF Discharge Orders: Discharge ED (Routine); Ordered 10/17/22 Ordered By: Destin Aguilar Referrals: Dylan Guan MD [Primary Care Provider] - 1 week Patient Instructions: Chest Pain - Noncardiac, Heart Palpitations (ED), Hypotension (ED) Activity Restrictions/Additional Instructions: Please follow-up with your primary care practitioner and/or automotive heavy mechanic in the next 1 to 2 weeks for further evaluation and treatment. If your blood pressure is below 90 systolic please hold one of your metoprolol's. Please keep a blood pressure log and a diary of how many times you held your medication to take to your next doctor's appointment. Coding Level of Care Code ED Steward/Stewardess Tourist Class for [place]
[2022-10-17 17:50] LABS: Basophils # 0.1 10^3/uL (0.0-0.1); Basophils % 0.7 %; Eosinophils # 0.2 10^3/uL (0.0-0.8); Eosinophils % 1.7 %; Hematocrit 37.7 % (37.0-47.0); Hemoglobin 11.9 g/dL (11.5-15.3); Lymphocytes # 2.3 10^3/uL (0.8-4.8); Lymphocytes % 19.3 %; Mean Corpuscular HGB Conc 31.6 g/dL (30.0-36.0); Mean Corpuscular Volume 82.3 fl (81-99); Mean Platelet Volume 10.6 fL (7.4-10.4); Monocytes # 0.9 10^3/uL (0.2-0.9); Monocytes % 7.3 %; Neutrophils # 8.54 10^3/uL (1.8-7.7); Neutrophils % 70.6 %; Nucleated Red Blood Cells % 0 %; Platelet Count 341 10^3/cmm (130-400); Red Blood Count 4.58 10^6/uL (4.1-5.3); Red Cell Distribution Width 15.1 % (12.1-15.1); White Blood Count 12.1 10^3/uL (4.0-10.0)
[2022-10-17 17:58] VITALS: BP 96/67; PULSE 97; RESP 18; O2SAT 97
[2022-10-17 18:13] LABS: Troponin(5th) Baseline 14 ng/L (0-10)
[2022-10-17 18:23] LABS: Alanine Aminotransferase 11 U/L (0-33); Albumin Level 4.7 g/dL (3.5-5.2); Alkaline Phosphatase 100 U/L (35-105); Anion Gap 20.5 (5-19); Aspartate Amino Transferase 17 U/L (0-32); Blood Urea Nitrogen 27 mg/dL (6-20); Calcium 9.2 mg/dL (8.5-10.5); Carbon Dioxide 23 mmol/L (22-29); Chloride 95 mmol/L (98-107); Globulin 2.4 g/dL (1.3-4.6); Glomerular Filtration Rate 42.7 mL/min (90-130); Glucose 104 mg/dL (65-115); NT Pro B Type Natriuretic Pept 387 pg/mL (0-125); Osmolality Calculated 285 mOsm/kg (285-295); Potassium 3.5 mmol/L (3.5-5.1); Sodium 135 mmol/L (136-145); Total Bilirubin 0.2 mg/dL (0.15-1.2); Total Protein 7.1 g/dL (6.6-8.7)
[2022-10-17] MEDS: sacubitril/valsartan 24-26 mg Tablet 2 EACH PO (19:53)
--- NOTE | 2022-10-17 20:07 | ECG_ITS ---
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 Measurements Intervals [place] Rate: 97 P: 71 CT: 210 QRS: 59 QRSD: 92 T: 59 QT: 371 QTc: 473 Interpretive Statements SINUS RHYTHM WITH FIRST DEGREE AV BLOCK Compared to ECG 10/17/2022 17:14:26 First degree AV block now present Sinus tachycardia no longer present T-wave abnormality no longer present Possible ischemia no longer present Electronically Signed On 10-18-2022 21:35:12 CDT by Rachna Ramos M.D. [id number]
[2022-10-17 20:18] LABS: Troponin 5 2HR 13.09 ng/L (0-10)
[2022-10-17 20:19] LABS: Troponin 5 2HR Delta -0.91 ABS# (0-10)
[2022-10-17 21:12] VITALS: BP 111/62; PULSE 102; RESP 20; O2SAT 99
== END 2022-10-17 20:43 | disposition home or self-care (01) ==
PROVIDERS: Emergency Provider Emergency Medicine; PCP Family Medicine
DX: R07.89 Other chest pain (principal); I95.2 Hypotension due to drugs; R00.2 Palpitations; Z79.82 Long term (current) use of aspirin; Z87.891 Personal history of nicotine dependence; I25.10 Atherosclerotic heart disease of native coronary artery without angina pectoris; J44.9 Chronic obstructive pulmonary disease, unspecified; E78.5 Hyperlipidemia, unspecified; Z85.72 Personal history of non-Hodgkin lymphomas; Z95.1 Presence of aortocoronary bypass graft
CPT/HCPCS: 71045; 80053; 83880; 84484; 85025; 93005; 99285

== ENCOUNTER → 2022-10-19 08:20 | Outpatient (BNVA) | payer MEDICAID, SELFPAY | PROVIDERS: PCP Family Medicine; Visit Provider Podiatrist Foot & Ankle Surgery | DX: S82.832D Other fracture of upper and lower end of left fibula, subsequent encounter for closed fracture with routine healing (principal); X50.1XXD Overexertion from prolonged static or awkward postures, subsequent encounter | CPT/HCPCS: 73610 ==

== ENCOUNTER 2022-10-19 14:52 | Outpatient (CLI) | payer MEDICAID, SELFPAY | END 2022-10-19 14:53 | disposition home or self-care (01) | LOC: SPT 14:53 | PROVIDERS: PCP Family Medicine; Visit Provider Podiatrist Foot & Ankle Surgery | DX: Z46.89 Encounter for fitting and adjustment of other specified devices (principal); S82.832D Other fracture of upper and lower end of left fibula, subsequent encounter for closed fracture with routine healing; X58.XXXD Exposure to other specified factors, subsequent encounter | CPT/HCPCS: 97760; 99213; L1902 ==

== ENCOUNTER → 2023-01-04 07:38 | Outpatient (BNVA) | payer MEDICAID, SELFPAY | PROVIDERS: PCP Family Medicine; Visit Provider Podiatrist Foot & Ankle Surgery | DX: S82.832D Other fracture of upper and lower end of left fibula, subsequent encounter for closed fracture with routine healing; X50.9XXD Other and unspecified overexertion or strenuous movements or postures, subsequent encounter; M76.62 Achilles tendinitis, left leg | CPT/HCPCS: 73610 ==

== ENCOUNTER → 2023-03-10 10:13 | Outpatient (BNVA) | payer MEDICAID, SELFPAY | PROVIDERS: PCP Family Medicine; Referring Provider Family Medicine; Visit Provider Specialist | DX: G43.109 Migraine with aura, not intractable, without status migrainosus (principal); N28.9 Disorder of kidney and ureter, unspecified; I25.5 Ischemic cardiomyopathy; Z95.2 Presence of prosthetic heart valve; R26.9 Unspecified abnormalities of gait and mobility | CPT/HCPCS: 36415; 80053; 84443; 85651 ==

== ENCOUNTER 2023-10-05 07:31 | Emergency (ER) | payer MEDICAID, SELFPAY ==
[2023-10-05 07:38] VITALS: BP 140/95; PULSE 111; TEMP 36.9; O2SAT 92; BMI 26.5
--- NOTE | 2023-10-05 07:50 | CTR_ITS ---
PROCEDURE INFORMATION: Exam: CT Thoracic Spine Without Contrast Exam date and time: 10/05/2023 8:20 AM Age: 53 years old Clinical indication: Injury or trauma; Fall; Blunt trauma (contusions or hematomas); Injury details: PT states she had a seizure last night- was thrown against a wall and was convulsing . C/O headache, sever mid to low back pain. Prior surgery; Surgery date: 6+ months; Surgery type: Port, aortic valve replacement, coronary bypass, mitral valve annuloplasty; Patient HX: HX of stage 4 non hodgkins lymphoma TECHNIQUE: Imaging protocol: Computed tomography of the thoracic spine without contrast. Radiation optimization: All CT scans at this facility use at least one of these dose optimization techniques: automated exposure control; mA and/or kV adjustment per patient size (includes targeted exams where dose is matched to clinical indication); or iterative reconstruction. COMPARISON: CR XR thoracic spine 2V [id number] 11/05/2021 9:34 AM RADIATION DOSE METRICS: Total DLP (mGy-cm): 693.01 FINDINGS: Bones/joints: Vertical fracture deformity through the T11 vertebral body with approximately 20% loss of height. Nondisplaced fracture deformities of the pedicles The remainder of the vertebral bodies are intact. There is a Schmorl's node in the superior endplate of T9. Soft tissues: Unremarkable. CT/CT thoracic spin wo con* [id number] IMPRESSION: Vertical fracture deformity through the T11 vertebral body. There is approximately 20% loss of height. Nondisplaced fracture deformities of the pedicles
--- NOTE | 2023-10-05 07:50 | CTR_ITS ---
PROCEDURE INFORMATION: Exam: CT Lumbar Spine Without Contrast Exam date and time: 10/05/2023 8:20 AM Age: 53 years old Clinical indication: Pain and injury or trauma; Fall; Blunt trauma (contusions or hematomas); Injury details: PT states she had a seizure last night- was thrown against a wall and was convulsing . C/O headache, sever mid to low back pain. Prior surgery; Surgery date: 6+ months; Surgery type: Port, aortic valve replacement, coronary bypass, mitral valve annuloplasty; Patient HX: Stage 4 non hodgkins lymphoma TECHNIQUE: Imaging protocol: Computed tomography of the lumbar spine without contrast. Radiation optimization: All CT scans at this facility use at least one of these dose optimization techniques: automated exposure control; mA and/or kV adjustment per patient size (includes targeted exams where dose is matched to clinical indication); or iterative reconstruction. COMPARISON: CR XR lumbar spine min 4V [id number] 11/26/2021 12:13 PM RADIATION DOSE METRICS: Total DLP (mGy-cm): 693.01 FINDINGS: Bones/joints: No acute fracture. Normal alignment. No significant disc bulge or herniation. No severe spinal canal stenosis. No significant neural foraminal narrowing. Soft tissues: Unremarkable. CT/CT lumbar spine wo con* [id number] IMPRESSION: No acute findings.
--- NOTE | 2023-10-05 07:52 | ED_ITS ---
HPI - Back Pain/Injury 2 General: Chief Complaint: Back Pain/Injury Stated Complaint: fall, back pain Time Seen by Provider: 10/05/23 07:39 Source: patient Mode of arrival: ambulatory History of Present Illness: 53-year-old female presents emergency ro om with complaints of low back pain. States she is walking in the kitchen last night and has what she thought was a seizure. She fell into a wall and her mother reports that she was convulsing for short period of time. She seems to remember the course of events fairly well she has no known history of seizures as a history of coronary artery disease and previously had a coronary bypass graft she denies any chest pain at this time. She thinks she may have hit her head as well. Does have a history of COPD as well she denies any documented fevers but states she feels like she has a fever all over her body. No incontinence of bowel or stool. She does have pain radiating down her legs which is reproduced with light palpation along her lumbar and thoracic spines. MD elicited complaint: back pain and back injury Pertinent past history: prior back pain and recent trauma Similar Symptoms Previously: Yes Quality: sharp Location: lumbar spine and thoracic spine Exacerbating factors: movement and sitting upright Associated symptoms: Deny abdominal pain, arthralgias, chills, change in bowel habits, difficulty walking, dysuria, fatigue, fecal incontinence, fever(s), hematuria, myalgias, nausea, numbness, syncope, tingling/numbness/burning, urinary frequency, urinary urgency, vomiting or weakness Review of Systems 2 Const: Denies: fever(s), chills or fatigue Card: Denies: chest pain or syncope Resp: Denies: dyspnea GI: Denies: abdominal pain, nausea, vomiting, fecal incontinence or change in bowel habits : Denies: dysuria, urinary frequency, urinary urgency or hematuria Musc: Denies: neck pain or back pain Skin/Breast: Denies: rash Neuro: Denies: difficulty walking PFSH ED 2 PFSH: Medical History Hyperlipidemia CAD (coronary artery disease) Ischemic cardiomyopathy Acute on chronic respiratory failure with hypoxia and hypercapnia Psychiatric care MDD (major depressive disorder) Osteopenia Tachycardia COPD (chronic obstructive pulmonary disease) Osteoarthritis Non Hodgkin's lymphoma In remission since 2004 Surgical History History of lung biopsy Status post mitral valve annuloplasty History of coronary artery bypass graft x 3 History of aortic valve replacement History of lymph node biopsy Family History Other Cancer Chronic kidney disease (CKD) Hyperlipidemia Hypertension Psychiatric illness Stroke Suicide Social History Smoking and tobacco/nicotine status: former use of tobacco/nicotine Quit status (tobacco/nicotine): has quit using Year quit tobacco: 2017 Second hand smoke exposure: No Alcohol intake: current Alcohol intake frequency: holidays/special occasions only Alcohol type: hard liquor Substance/Drug Use: former Physical Exam 2 Const: GENERAL APPEARANCE: cooperative and comfortable O RIENTATION/CONSCIOUSNESS: Yes awake, Yes oriented to person, Yes oriented to place and Yes oriented to time HENMT: COMMON NORMALS: normocephalic, atraumatic and hearing grossly normal bilaterally HEAD & SCALP: normocephalic and atraumatic Resp: COMMON NORMALS: normal respiratory effort, No retractions, No use of accessory muscles and clear to auscultation bilaterally AUSCULTATION: clear to auscultation bilaterally Cardio: COMMON NORMALS: regular rate, regular rhythm and No murmurs present (Cardio) RATE: regular rate RHYTHM: regular rhythm GI: COMMON NORMALS: Soft to palpation and No hepatosplenomegaly present A USCULTATION: Yes normoactive bowel sounds PALPATION: Yes Soft to palpation, No Tenderness to palpation present (GI), No Guarding due to palpation present (GI) and Yes No hepatosplenomegaly present Back/Pelvis: OTHER: Reproducible pain with light touch along the lower thoracic and lumbar spine patient reports pain radiating into her lower extremities with the light touch Extremity: COMMON NORMALS: normal to inspection, capillary refill normal, no clubbing, cyanosis or edema, no calf tenderness and no pedal edema Neuro: SENSORIUM/ORIENTATION: Yes oriented to person, Yes oriented to place and Yes oriented to time Skin: COMMON NORMALS: no rashes or lesions noted GENERAL SKIN EXAM: no rashes or lesions noted Course 2 Vital Signs: Vital signs: Vital Signs Temperature 98.4 F 10/05/23 11:51 Pulse Rate 99 10/05/23 11:51 Respiratory Rate 20 H 10/05/23 11:51 Blood Pressure 127/79 10/05/23 11:51 Pulse Oximetry 93 10/05/23 11:51 Oxygen Delivery Me thod Room Air 10/05/23 10:28 MDM - Back Pain/Injury Medical Decision Making T11 compression fracture the rest of the labs were unremarkable. Does have a little bit of leukocytosis. It is possible she had a seizure but did not seem particularly postictal. At this point we will give her pain medications for her T11 fracture and set her up for an outpatient EEG follow-up with neurology. Medical Records I reviewed the patient's medical records. Labs I reviewed the patient's lab results. 10/05/23 08:40 10/05/23 08:40 Radiology Impressions Lumbar Spine CT 10/05/23 07:50 IMPRESSION: No acute findings. Thoracic Spine CT 10/05/23 07:50 IMPRESSION: Vertical fracture deformity through the T11 vertebral body. There is approximately 20% loss of height. Nondisplaced fracture deformities of the pedicles Head CT 10/05/23 07:55 IMPRESSION: No acute intracranial pathology detected. Laboratory Results WBC 15.77 10^3/uL (3.29-11.43) H 10/05/23 08:40 RBC 4.58 10^6/uL (3.85-5.65) 10/05/23 08:40 Hgb 11.00 g/dL (11.27-16.99) L 10/05/23 08:40 Hct 35.6 % (36-47) L 10/05/23 08:40 MCV 77.7 fl (85-98) L 10/05/23 08:40 MCH 24.0 pg (27-33) L 10/05/23 08:40 MCHC 30.9 g/dL (30-55) 10/05/23 08:40 RDW 17.5 % (12.1-15.1) H 10/05/23 08:40 Plt Count 279 10^3/cmm (157-399) 10/05/23 08:40 MPV 10.9 fL (7.4-10.4) H 10/05/23 08:40 Neut % (Auto) 82.9 % 10/05/23 08:40 Lymph % (Auto) 8.2 % 10/05/23 08:40 Centre % (Auto) 6.5 % 10/05/23 08:40 Eos % (Auto) 1.5 % 10/05/23 08:40 Baso % (Auto) 0.5 % 10/05/23 08:40 Neut # (Auto) 13.07 10^3/uL (1.8-7.7) H 10/05/23 08:40 Lymph # (Auto) 1.3 10^3/uL (0.8-4.8) 10/05/23 08:40 Centre # (Auto) 1.0 10^3/uL (0.2-0.9) H 10/05/23 08:40 Eos # (Auto) 0.2 10^3/uL (0.0-0.8) 10/05/23 08:40 Baso # (Auto) 0.1 10^3/uL (0.0-0.1) 10/05/23 08:40 Nucleated RBC % (auto) 0 % 10/05/23 08:40 Nucleated RBCs # 0.0 /100WBC 10/05/23 08:40 Sodium 142 mmol/L (136-145) 10/05/23 08:40 Potassium 3.8 mmol/L (3.5-5.1) 10/05/23 08:40 Chloride 96 mmol/L (98-107) L 10/05/23 08:40 Carbon Dioxide 27 mmol/L (22-29) 10/05/23 08:40 Anion Gap 22.8 (5-19) H 10/05/23 08:40 BUN 11 mg/dL (6-20) 10/05/23 08:40 Creatinine 0.8 mg/dL (0.5-0.9) 10/05/23 08:40 GFR Calculation 74.5 mL/min (90-130) L 10/05/23 08:40 Glucose 124 mg/dL (65-115) H 10/05/23 08:40 Calculated Osmolality 295 mOsm/kg (285-295) 10/05/23 08:40 Calcium 9.1 mg/dL (8.5-10.5) 10/05/23 08:40 Magnesium 1.4 mg/dL (1.7-2.3) L 10/05/23 08:40 Total Bilirubin 0.4 mg/dL (0.15-1.2) 10/05/23 08:40 AST 24 U/L (0-32) 10/05/23 08:40 ALT 10 U/L (0-33) 10/05/23 08:40 Alkaline Phosphatase 127 U/L (35-105) H 10/05/23 08:40 Total Protein 7.3 g/dL (6.6-8.7) 10/05/23 08:40 Albumin 4.5 g/dL (3.5-5.2) 10/05/23 08:40 Globulin 2.8 g/dL (1.3-4.6) 10/05/23 08:40 Urine Color Yellow (Yellow) 10/05/23 10: Urine Appearance Cloudy (CLEAR) A 10/05/23 10:26 Urine pH 7 (5-7) 10/05/23 10:26 Ur Specific [place] 1.010 (1.005-1.030) 10/05/23 10:26 Urine Protein Neg (Negative) 10/05/23 10:26 Urine Glucose (UA) Norm (Normal) 10/05/23 10:26 Urine Ketones 1+ (Negative) H 10/05/23 10:26 Urine Blood Neg (Negative) 10/05/23 10:26 Urine Nitrate Negative (Negative) 10/05/23 10:26 Urine Bilirubin Neg (Negative) 10/05/23 10:26 Urine Urobilinogen Norm mg/dL (Negative) 10/05/23 10:26 Ur Leukocyte Esterase 1+ (Negative) H 10/05/23 10:26 Urine RBC 0-4 /hpf (0-2) H 10/05/23 10:26 Urine WBC 40-55 /hpf (0-5) H 10/05/23 10:26 Ur Squamous Epith Cells 25-40 /hpf (0-5) H 10/05/23 10:26 Amorphous Sediment Not Reportable 10/05/23 10:26 Urine Bacteria 2+ /hpf (NONE) H 10/05/23 10:26 Urine Mucus 1+ /hpf 10/05/23 10:26 All radiology interpretation(s) finalized by discharge Discharge Plan Discharge Patient Disposition: Home Clinical Impression: Compression fracture of thoracic vertebra, Seizure Condition: Stable Prescriptions: New hydrocodone-acetaminophen 5-325 mg tablet 1 tab PO Q6H PRN (Reason: pain) Qty: 15 0RF No Action (DME) Portable O2 See Rx Instructions .Route .MEDSUPPLY Qty: 1 0RF Rx Instructions: As directed aspirin [Adult Low Dose Aspirin] 81 mg tablet,delayed release (DR/EC) 81 mg PO QAM hydrocodone-acetaminophen 7.5-325 mg tablet 1 tab PO Q8H PRN (Reason: pain) 7 Days Qty: 21 0RF nicotine 21 mg/24 hr patch 24 hour 1 patch transdermal Q24H Qty: 28 2RF Spiriva with HandiHaler 18 mcg capsule, w/inhalation device 1 cap inhalation DAILY Qty: 60 2RF Rx Instructions: puncture 1 cap using device; one dose = 2 inhalations 340 B furosemide 40 mg tablet 40 mg PO DAILY Qty: 90 3RF metoprolol succinate 50 mg tablet extended release 24 hr 50 mg PO BID Qty: 180 3RF nicotine (polacrilex) 4 mg Lozenge 4 mg BUCCAL Q4H PRN (Reason: CESSATION) atorvastatin 80 mg tablet 80 mg PO QPM Seroquel 300 mg tablet 300 mg PO BEDTIME sertraline 100 mg tablet 100 mg PO QAM omeprazole 20 mg capsule,delayed release(DR/EC) 20 mg PO DAILY Symbicort 160-4.5 mcg/actuation HFA aerosol inhaler 2 puff inhalation BID Discharge Orders: Discharge ED (Routine); Ordered 10/05/23 Ordered By: Cesar May Referrals: Dylan Guan MD [Primary Care Provider] - Discharge Diet: Usual diet Discharge Activity: Resume usual activity Patient Instructions: Opioid Safety, Pain Management Activity Restrictions/Additional Instructions: Thank you for choosing [facility] for your healthcare needs today. It is very important that you follow up as instructed or that you return to the Emergency Department should you have concerns or if your condition changes or worsens in any way. You were seen today after a fall and concern for possible seizure along with new back pain. Scan of your back shows a thoracic compression fracture. You can use the hydrocodone prescribed today for that. CT of your head was negative we will set you up for an outpatient EEG and follow-up with neurology to further evaluate but possibility of seizure. 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
--- NOTE | 2023-10-05 07:55 | CTR_ITS ---
PROCEDURE INFORMATION: Exam: CT Head Without Contrast Exam date and time: 10/05/2023 8:17 AM Age: 53 years old Clinical indication: Pain and injury or trauma; Fall; Blunt trauma (contusions or hematomas); Headache; Patient HX: HX of stage 4 non hodgkins lymphoma; Additional info: Closed head injury possible seizure TECHNIQUE: Imaging protocol: Computed tomography of the head without contrast. Total images: 1220 Radiation optimization: All CT scans at this facility use at least one of these dose optimization techniques: automated exposure control; mA and/or kV adjustment per patient size (includes targeted exams where dose is matched to clinical indication); or iterative reconstruction. COMPARISON: CT head wo con* [id number] 07/29/2022 3:54 AM RADIATION DOSE METRICS: Total DLP (mGy-cm): 1171.76 FINDINGS: Brain: Chronic lacunar infarct of the left caudate. Cerebral ventricles: No ventriculomegaly. Paranasal sinuses: Visualized sinuses are unremarkable. No fluid levels. Mastoid air cells: Visualized mastoid air cells are well aerated. Bones: Unremarkable. No acute fracture. Soft tissues: Unremarkable. CT/CT head wo con* [id number] IMPRESSION: No acute intracranial pathology detected.
--- NOTE | 2023-10-05 08:05 | ECG_ITS ---
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 Measurements Intervals [place] Rate: 104 P: 80 FL: 191 QRS: 66 QRSD: 97 T: 64 QT: 368 QTc: 486 Interpretive Statements SINUS TACHYCARDIA MINIMAL ST DEPRESSION [0.025+ mV ST DEPRESSION] Compared to ECG 10/17/2022 20:07:14 ST (T wave) deviation now present Sinus rhythm no longer present First degree AV block no longer present Electronically Signed On 10-05-2023 9:42:02 CDT by Ambrose Vo M.D. [id number]
[2023-10-05] MEDS: ketorolac 30 mg/mL INJ IVP (08:38)
[2023-10-05 08:53] LABS: Basophils # 0.1 10^3/uL (0.0-0.1); Basophils % 0.5 %; Eosinophils # 0.2 10^3/uL (0.0-0.8); Eosinophils % 1.5 %; Hematocrit 35.6 % (36-47); Lymphocytes # 1.3 10^3/uL (0.8-4.8); Lymphocytes % 8.2 %; Mean Corpuscular HGB Conc 30.9 g/dL (30-55); Mean Corpuscular Volume 77.7 fl (85-98); Mean Platelet Volume 10.9 fL (7.4-10.4); Monocytes % 6.5 %; Neutrophils # 13.07 10^3/uL (1.8-7.7); Neutrophils % 82.9 %; Nucleated Red Blood Cells % 0 %; Platelet Count 279 10^3/cmm (157-399); Red Blood Count 4.58 10^6/uL (3.85-5.65); Red Cell Distribution Width 17.5 % (12.1-15.1); White Blood Count 15.77 10^3/uL (3.29-11.43)
[2023-10-05 09:09] LABS: Alanine Aminotransferase 10 U/L (0-33); Albumin Level 4.5 g/dL (3.5-5.2); Alkaline Phosphatase 127 U/L (35-105); Anion Gap 22.8 (5-19); Aspartate Amino Transferase 24 U/L (0-32); Blood Urea Nitrogen 11 mg/dL (6-20); Calcium 9.1 mg/dL (8.5-10.5); Carbon Dioxide 27 mmol/L (22-29); Chloride 96 mmol/L (98-107); Creatinine Clr Calc Pharmacy 73.5741; Globulin 2.8 g/dL (1.3-4.6); Glomerular Filtration Rate 74.5 mL/min (90-130); Glucose 124 mg/dL (65-115); Magnesium 1.4 mg/dL (1.7-2.3); Osmolality Calculated 295 mOsm/kg (285-295); Potassium 3.8 mmol/L (3.5-5.1); Sodium 142 mmol/L (136-145); Total Bilirubin 0.4 mg/dL (0.15-1.2); Total Protein 7.3 g/dL (6.6-8.7)
[2023-10-05 09:17] VITALS: BP 153/81; PULSE 104; O2SAT 93
[2023-10-05 10:10] VITALS: RESP 20; O2SAT 94
[2023-10-05] MEDS: morphine 4 mg/mL SDV 1 mL 2 MG IVP (10:10)
[2023-10-05] MEDS: sodium chloride 0.9% 1,000 ML 999 ML IV (10:15)
[2023-10-05 10:28] VITALS: BP 124/83; PULSE 99; O2SAT 93
[2023-10-05 10:46] LABS: Urine Appearance Cloudy (CLEAR); Urine Color Yellow (Yellow); pH Urine 7 (5-7)
[2023-10-05 10:47] LABS: Add Urine Microscopic? YES; Bilirubin Urine Neg (Negative); Blood Urine Neg (Negative); Glucose Urine UA Norm (Normal); Ketones Urine 1+ (Negative); Leukocyte Esterase Urine 1+ (Negative); Nitrate Urine Negative (Negative); Protein Urine Neg (Negative); Urobilinogen Urine Norm (Negative)
[2023-10-05 11:00] LABS: Add Urine Culture? Yes; Bacteria Urine 2+ /hpf; Mucus Urine 1+ /hpf; RBC Urine 0-4 /hpf (0-2); Squamous Epithelial Cell Urine 25-40 /hpf (0-5); WBC Urine 40-55 /hpf (0-5)
[2023-10-05 11:51] VITALS: BP 127/79; PULSE 99; RESP 20; TEMP 36.9; O2SAT 93
--- NOTE | 2023-10-05 12:09 | DCPLANNER ---
messaged ortho for er f/u
--- NOTE | 2023-10-05 12:49 | DCPLANNER ---
message neurology for er f/u and faxed eeg order to scheduling.
--- NOTE | 2023-10-06 13:15 | DCPLANNER ---
messaged ortho for er f/u
== END 2023-10-05 11:52 | disposition home or self-care (01) ==
PROVIDERS: Emergency Provider Family Medicine; PCP Family Medicine
DX: S22.080A Wedge compression fracture of T11-T12 vertebra, initial encounter for closed fracture (principal); W18.39XA Other fall on same level, initial encounter; Y93.01 Activity, walking, marching and hiking; Y92.000 Kitchen of unspecified non-institutional (private) residence as the place of occurrence of the external cause; R56.9 Unspecified convulsions
CPT/HCPCS: 70450; 72128; 72131; 80053; 81001; 83735; 85025; 87086; 93005; 96374; 96375; 99285; J1885; J2270; J7030

== ENCOUNTER 2023-10-07 00:39 | Emergency (ER) | payer MEDICAID, SELFPAY ==
[2023-10-07 01:16] VITALS: BP 141/103; PULSE 111; RESP 18; TEMP 36.6; O2SAT 97
--- NOTE | 2023-10-07 01:20 | XRR_ITS ---
PROCEDURE INFORMATION: Exam: XR Chest Exam date and time: 10/07/2023 1:54 AM Age: 53 years old Clinical indication: Other: Weak; Prior surgery; Surgery date: 6+ months; Surgery type: Aorta, triple bypass; Additional info: Weakness TECHNIQUE: Imaging protocol: Radiologic exam of the chest. Views: 1 view. COMPARISON: CR (CHEST, ) 10/17/2022 6:10 PM FINDINGS: Tubes, catheters and devices: Left chest wall medical port with catheter tip in stable positioning from prior comparison. Lungs: Basilar scarring/atelectasis. Pleural spaces: Unremarkable. No pleural effusion. No pneumothorax. Heart/Mediastinum: Postprocedural changes of the cardiomediastinal silhouette. Hiatal hernia. Bones/joints: Status post sternotomy. Degenerative change of the visualized osseous structures. XR/XR chest 1V portable [id number] IMPRESSION: 1. No acute cardiopulmonary findings. 2. Additional findings as above.
--- NOTE | 2023-10-07 01:20 | CTR_ITS ---
PROCEDURE INFORMATION: Exam: CT Head Without Contrast Exam date and time: 10/07/2023 2:06 AM Age: 53 years old Clinical indication: Other: Seizure TECHNIQUE: Imaging protocol: Computed tomography of the head without contrast. Radiation optimization: All CT scans at this facility use at least one of these dose optimization techniques: automated exposure control; mA and/or kV adjustment per patient size (includes targeted exams where dose is matched to clinical indication); or iterative reconstruction. COMPARISON: CT head wo con* [id number] 10/05/2023 8:17 AM RADIATION DOSE METRICS: Total DLP (mGy-cm): 991.2 FINDINGS: Brain: Chronic left caudate lacunar infarct. Cerebral ventricles: No ventriculomegaly. Pituitary gland and sella: Partially empty sella, likely little clinical significance given isolated finding. Paranasal sinuses: Visualized sinuses are unremarkable. No fluid levels. Mastoid air cells: Visualized mastoid air cells are well aerated. Bones: Unremarkable. No acute fracture. Soft tissues: Unremarkable. Vasculature: Scattered anterior circulation calcified atherosclerotic disease. CT/CT head wo con* [id number] IMPRESSION: No acute intracranial findings.
--- NOTE | 2023-10-07 01:21 | CTR_ITS ---
PROCEDURE INFORMATION: Exam: CT Abdomen And Pelvis With Contrast Exam date and time: 10/07/2023 2:14 AM Age: 53 years old Clinical indication: Abdominal tenderness; Additional info: Abdominal pain TECHNIQUE: Imaging protocol: Computed tomography of the abdomen and pelvis with contrast. Radiation optimization: All CT scans at this facility use at least one of these dose optimization techniques: automated exposure control; mA and/or kV adjustment per patient size (includes targeted exams where dose is matched to clinical indication); or iterative reconstruction. Contrast material: OMNI 350; Contrast volume: 100 ml; Contrast route: INTRAVENOUS (IV); COMPARISON: 1. CT lumbar spine wo con* [id number] 10/05/2023 8:[address] thoracic spine without contrast performed on 10/05/2023 at 8:22 a.m. RADIATION DOSE METRICS: Total DLP (mGy-cm): 546.1 FINDINGS: Lungs: Basilar scarring/atelectasis. Heart: Postprocedural change of the heart. Diaphragm: Sliding-type hiatal hernia. Liver: Normal. No mass. Gallbladder and biliary ducts: Normal. No calcified stones. No ductal dilation. Pancreas: Pancreatic atrophy. Spleen: Normal. No splenomegaly. Adrenal glands: Normal. No mass. Kidneys and ureters: Few scattered bilateral renal cortical hypodensities too small to characterize by modality, statistically likely to represent benign renal cysts. Stomach and bowel: Unremarkable. No obstruction. No mucosal thickening. Appendix: No evidence of appendicitis. Intraperitoneal space: Unremarkable. No free air. No significant fluid collection. Vasculature: [id number] calcified atherosclerotic disease of the visualized aorta and its major branches. Calcified pelvic phleboliths. Lymph nodes: Unremarkable. No enlarged lymph nodes. Urinary bladder: Unremarkable as visualized. Reproductive: Unremarkable as visualized. Bones/joints: Status post sternotomy. Wedge deformity of T11 which is stable from short interval imaging on 10/05/2023. Soft tissues: Unremarkable. CT/CT abdomen pelvis w con* [id number] IMPRESSION: 1. No acute intra-abdominal findings. 2. Stable T11 compression fracture. 3. Additional findings as above. COMMENTS: Consistent with the [employer]'s Incidental Findings Committee white paper (J Am Dayanna Radiol 2018): Any incidental renal lesion less than 1 cm or classified as too small to characterize, or any incidental cystic renal lesion characterized as simple-appearing, is likely benign. No follow-up imaging is recommended for these lesions per consensus recommendations based on imaging criteria.
[2023-10-07 01:45] VITALS: BP 124/84; PULSE 106; RESP 18; O2SAT 94
[2023-10-07 01:48] LABS: Basophils # 0.1 10^3/uL (0.0-0.1); Basophils % 0.4 %; Eosinophils # 0.3 10^3/uL (0.0-0.8); Eosinophils % 2.3 %; Hematocrit 32.3 % (36-47); Lymphocytes % 8.1 %; Mean Corpuscular HGB Conc 30.7 g/dL (30-55); Mean Corpuscular Hemoglobin 23.6 pg (27-33); Mean Corpuscular Volume 76.9 fl (85-98); Mean Platelet Volume 10.4 fL (7.4-10.4); Monocytes # 1.1 10^3/uL (0.2-0.9); Monocytes % 8.5 %; Neutrophils # 9.97 10^3/uL (1.8-7.7); Neutrophils % 80.2 %; Nucleated Red Blood Cells % 0 %; Platelet Count 239 10^3/cmm (157-399); Red Cell Distribution Width 17.2 % (12.1-15.1); White Blood Count 12.41 10^3/uL (3.29-11.43)
[2023-10-07 02:09] LABS: Alanine Aminotransferase 12 U/L (0-33); Albumin Level 4.2 g/dL (3.5-5.2); Alkaline Phosphatase 114 U/L (35-105); Anion Gap 21.5 (5-19); Aspartate Amino Transferase 58 U/L (0-32); Blood Urea Nitrogen 14 mg/dL (6-20); C Reactive Protein 48.2 mg/L (0.0-4.9); Calcium 8.8 mg/dL (8.5-10.5); Carbon Dioxide 22 mmol/L (22-29); Chloride 97 mmol/L (98-107); Globulin 2.7 g/dL (1.3-4.6); Glomerular Filtration Rate 86.9 mL/min (90-130); Glucose 117 mg/dL (65-115); Osmolality Calculated 286 mOsm/kg (285-295); Potassium 3.5 mmol/L (3.5-5.1); Sodium 137 mmol/L (136-145); Total Bilirubin 0.4 mg/dL (0.15-1.2); Total Protein 6.9 g/dL (6.6-8.7)
[2023-10-07 02:10] LABS: Lactic Sepsis W/Reflex 0.9 mmol/L (0.5-2.2)
[2023-10-07] MEDS: iohexol 350 mg/mL 500 mL Btl (per mL) IV (02:17)
[2023-10-07 02:22] VITALS: RESP 18; O2SAT 94
[2023-10-07] MEDS: HYDROmorphone 1 mg/mL INJ 1 mL IVP (02:22)
[2023-10-07 02:31] VITALS: PULSE 105; RESP 18; O2SAT 90
--- NOTE | 2023-10-07 03:13 | W.ED.BACK ---
HPI - Back Pain/Injury General: Chief Complaint: Back Pain/Injury Stated Complaint: back lower abd pain pressure havin baby Time Seen by Provider: 10/07/23 01:17 History of Present Illness: 53-year-old female with history of chronic pain syndrome and chronic back pain, coronary artery disease, ischemic cardiomyopathy, COPD, who presents to the emergency room with abdominal pain. She tells me this evening she had some sort of episode where she sat up and sat back several times and she thought might be a seizure. She says this is never happened before. She tells me she was discharged from the hospital yesterday with a compression fracture. She actually had been in the ER and did have a mild T11 compression fracture. It was also mentioned that she thought she had a seizure there as well but it did not sound like this was an actual seizure. And she was not postictal. She says after which she started having cramping in her abdomen. She says she feels like she is having a baby. Some nausea but no vomiting. Review of Systems Narrative: Constitutional symptoms: Negative except as documented in HPI. Skin symptoms: Negative except as documented in HPI. Eye symptoms: Negative except as documented in HPI. ENMT symptoms: Negative except as documented in HPI. Respiratory symptoms: Negative except as documented in HPI. Cardiovascular symptoms: Negative except as documented in HPI. Gastrointestinal symptoms: Negative except as documented in HPI. Genitourinary symptoms: Negative except as documented in HPI. Musculoskeletal symptoms: Negative except as documented in HPI. Neurologic symptoms: Negative except as documented in HPI. Psychiatric symptoms: Negative except as documented in HPI. Endocrine symptoms: Negative except as documented in HPI. PFS ED PFSH: Medical History Hyperlipidemia CAD (coronary artery disease) Ischemic cardiomyopathy Acute on chronic respiratory failure with hypoxia and hypercapnia Psychiatric care MDD (major depressive disorder) Osteopenia Tachycardia COPD (chronic obstructive pulmonary disease) Osteoarthritis Non Hodgkin's lymphoma In remission since 2004 Surgical History History of lung biopsy Status post mitral valve annuloplasty History of coronary artery bypass graft x 3 History of aortic valve replacement History of lymph node biopsy Family History Other Cancer Chronic kidney disease (CKD) Hyperlipidemia Hypertension Psychiatric illness Stroke Suicide Social History Smoking and tobacco/nicotine status: former use of tobacco/nicotine Quit status (tobacco/nicotine): has quit using Year quit tobacco: 2017 Second hand smoke exposure: No Alcohol intake: current Alcohol intake frequency: holidays/special occasions only Alcohol type: hard liquor Substance/Drug Use: former Physical Exam Narrative: EXAM NARRATIVE: General: Alert, no acute distress. Skin: Warm, dry. Head: Normocephalic, atraumatic. Neck: Supple, trachea midline. Eye: Extraocular movements are intact. Ears, nose, mouth and throat: mucosa moist. Cardiovascular: Regular, Normal peripheral perfusion. Respiratory: Lungs are clear to auscultation, respirations are non-labored, breath sounds are equal, Symmetrical chest wall expansion. Gastrointestinal: Soft, some diffuse nonfocal abdominal pain, Non distended Musculoskeletal: Normal ROM, no deformity. Neurological: Alert and oriented, No focal neurological deficit observed. Psychiatric: Cooperative, appropriate mood & affect. Course Vital Signs: Vital signs: Vital Signs Temperature 98 F 10/07/23 01:16 Pulse Rate 105 H 10/07/23 02:31 Respiratory Rate 18 10/07/23 02:31 Blood Pressure 124/84 10/07/23 01:45 Pulse Oximetry 90 10/07/23 02:31 MDM - Back Pain/Injury Medical Decision Making Patient is complaining of abdominal and back pain. CT scan of the abdomen was ordered. She also complained of something that was like a seizure and she might of hit her head so a CT of the head was ordered. Basic lab workup was ordered as well. Lab Review: Laboratory results were reviewed and interpreted by myself the emergency room physician. Lab work is fairly unremarkable. White count 12. Hemoglobin stable at 9.9. No renal failure. BUN and creatinine are 14 and 0.7. Chest x-ray: Small basilar scarring. No acute process. No infiltrate. No pneumothorax. This was reviewed and interpreted by myself the ER physician. CT head: No acute intracranial process. no intracranial hemorrhage, no evidence of infarct. no evidence of acute fracture.This was reviewed and interpreted by myself the ER physician. CT of the abdomen pelvis with contrast: There is a stable T11 vertebral fracture. Otherwise there is no acute process. This was reviewed and interpreted by myself the emergency room physician. I also reviewed the radiology report. I reviewed the patient's medical record. Reexamination: When I returned to the room patient was still crying in pain after having received a milligram of Dilaudid. I have ordered more Dilaudid and some Decadron and some Toradol. No altered mental status. No increased work of breathing. Assessment and plan: Vertebral compression fracture ?A total of 3 mg Dilaudid. 10 mg Decadron. 15 mg Toradol. - Discharged home - Discussed plan with patient. Answered any questions. - Evaluation and treatment of this problem were appropriate in the emergency setting. Labs 10/07/23 01:40 10/07/23 01:40 Radiology Impressions Chest X-Ray 10/07/23 01:20 IMPRESSION: 1. No acute cardiopulmonary findings. 2. Additional findings as above. Head CT 10/07/23 01:20 IMPRESSION: No acute intracranial findings. Abdomen/Pelvis CT 10/07/23 01:21 IMPRESSION: 1. No acute intra-abdominal findings. 2. Stable T11 compression fracture. 3. Additional findings as above. COMMENTS: Consistent with the [employer]'s Incidental Findings Committee white paper (J Am Dayanna Radiol 2018): Any incidental renal lesion less than 1 cm or classified as too small to characterize, or any incidental cystic renal lesion characterized as simple-appearing, is likely benign. No follow-up imaging is recommended for these lesions per consensus recommendations based on imaging criteria. Laboratory Results WBC 12.41 10^3/uL (3.29-11.43) H 10/07/23 01:40 RBC 4.20 10^6/uL (3.85-5.65) 10/07/23 01:40 Hgb 9.90 g/dL (11.27-16.99) L 10/07/23 01:40 Hct 32.3 % (36-47) L 10/07/23 01:40 MCV 76.9 fl (85-98) L 10/07/23 01:40 MCH 23.6 pg (27-33) L 10/07/23 01:40 MCHC 30.7 g/dL (30-55) 10/07/23 01:40 RDW 17.2 % (12.1-15.1) H 10/07/23 01:40 Plt Count 239 10^3/cmm (157-399) 10/07/23 01:40 MPV 10.4 fL (7.4-10.4) 10/07/23 01:40 Neut % (Auto) 80.2 % 10/07/23 01:40 Lymph % (Auto) 8.1 % 10/07/23 01:40 [place] % (Auto) 8.5 % 10/07/23 01:40 Eos % (Auto) 2.3 % 10/07/23 01:40 Baso % (Auto) 0.4 % 10/07/23 01:40 Neut # (Auto) 9.97 10^3/uL (1.8-7.7) H 10/07/23 01:40 Lymph # (Auto) 1.0 10^3/uL (0.8-4.8) 10/07/23 01:40 [place] # (Auto) 1.1 10^3/uL (0.2-0.9) H 10/07/23 01:40 Eos # (Auto) 0.3 10^3/uL (0.0-0.8) 10/07/23 01:40 Baso # (Auto) 0.1 10^3/uL (0.0-0.1) 10/07/23 01:40 Nucleated RBC % (auto) 0 % 10/07/23 01:40 Nucleated RBCs # 0.0 /100WBC 10/07/23 01:40 Sodium 137 mmol/L (136-145) 10/07/23 01:40 Potassium 3.5 mmol/L (3.5-5.1) 10/07/23 01:40 Chloride 97 mmol/L (98-107) L 10/07/23 01:40 Carbon Dioxide 22 mmol/L (22-29) 10/07/23 01:40 Anion Gap 21.5 (5-19) H 10/07/23 01:40 BUN 14 mg/dL (6-20) 10/07/23 01:40 Creatinine 0.7 mg/dL (0.5-0.9) 10/07/23 01:40 GFR Calculation 86.9 mL/min (90-130) L 10/07/23 01:40 Glucose 117 mg/dL (65-115) H 10/07/23 01:40 Calculated Osmolality 286 mOsm/kg (285-295) 10/07/23 01:40 Lactic Acid 0.9 mmol/L (0.5-2.2) 10/07/23 01:40 Calcium 8.8 mg/dL (8.5-10.5) 10/07/23 01:40 Total Bilirubin 0.4 mg/dL (0.15-1.2) 10/07/23 01:40 AST 58 U/L (0-32) H 10/07/23 01:40 ALT 12 U/L (0-33) 10/07/23 01:40 Alkaline Phosphatase 114 U/L (35-105) H 10/07/23 01:40 C-Reactive Protein 48.2 mg/L (0.0-4.9) H 10/07/23 01:40 Total Protein 6.9 g/dL (6.6-8.7) 10/07/23 01:40 Albumin 4.2 g/dL (3.5-5.2) 10/07/23 01:40 Globulin 2.7 g/dL (1.3-4.6) 10/07/23 01:40 Ethyl Alcohol < 10 mg/dL (0-10) 10/07/23 01:40 All radiology interpretation(s) finalized by discharge Discharge Plan Discharge Patient Disposition: Home Clinical Impression: Vertebral compression fracture Condition: Stable Prescriptions: New dexamethasone 6 mg tablet 6 mg PO DAILY 5 Days Qty: 5 0RF diclofenac sodium 50 mg tablet,delayed release (DR/EC) 50 mg PO Q12H Qty: 20 0RF oxycodone 5 mg tablet 5 mg PO Q8H PRN (Reason: pain) Qty: 20 0RF No Action (DME) Portable O2 See Rx Instructions .Route .MEDSUPPLY Qty: 1 0RF Rx Instructions: As directed aspirin [Adult Low Dose Aspirin] 81 mg tablet,delayed release (DR/EC) 81 mg PO QAM hydrocodone-acetaminophen 7.5-325 mg tablet 1 tab PO Q8H PRN (Reason: pain) 7 Days Qty: 21 0RF nicotine 21 mg/24 hr patch 24 hour 1 patch transdermal Q24H Qty: 28 2RF Spiriva with HandiHaler 18 mcg capsule, w/inhalation device 1 cap inhalation DAILY Qty: 60 2RF Rx Instructions: puncture 1 cap using device; one dose = 2 inhalations 340 B furosemide 40 mg tablet 40 mg PO DAILY Qty: 90 3RF metoprolol succinate 50 mg tablet extended release 24 hr 50 mg PO BID Qty: 180 3RF nicotine (polacrilex) 4 mg Lozenge 4 mg BUCCAL Q4H PRN (Reason: CESSATION) atorvastatin 80 mg tablet 80 mg PO QPM Seroquel 300 mg tablet 300 mg PO BEDTIME sertraline 100 mg tablet 100 mg PO QAM omeprazole 20 mg capsule,delayed release(DR/EC) 20 mg PO DAILY Symbicort 160-4.5 mcg/actuation HFA aerosol inhaler 2 puff inhalation BID hydrocodone-acetaminophen 5-325 mg tablet 1 tab PO Q6H PRN (Reason: pain) Qty: 15 0RF Discharge Orders: Discharge ED (Routine); Ordered 10/07/23 Ordered By: Jacki Hoff Referrals: Zane Harden MD [Referring] - (Call for an appointment if pain persist.) Dylan Guan MD [Primary Care Provider] - Discharge Diet: Regular Discharge Activity: Increase activity as tolerated Patient Instructions: Vertebral Compression Fracture (ED) Activity Restrictions/Additional Instructions: Thank you for choosing [facility] for your healthcare needs today. Please realize this is an emergency room and that we are providing you with a medical screening exam and this may not be complete and all inclusive of all the testing and or work up that you may need to determine your ailment or severity of your illness. You have been screened and evaluated and felt safe for discharge. Health conditions do change or evolve sometimes and as such it is important that you follow up with your Primary Doctor to be re checked, 3-5 days is a general good time frame for follow up. You are always welcome to return to the ED for re assessment if your symptoms are worsening or you have new concerns Coding Level of Care Code ED Pressure Control Supervisor for [place]
[2023-10-07 04:03] LABS: Alcohol Level < 10 mg/dL (0-10)
[2023-10-07] MEDS: dexamethasone 10 mg/mL INJ IVP (04:42)
[2023-10-07] MEDS: HYDROmorphone 1 mg/mL INJ 1 mL 2 MG IVP (04:42)
[2023-10-07] MEDS: ketorolac 30 mg/mL INJ 15 MG IVP (04:43)
== END 2023-10-07 04:52 | disposition home or self-care (01) ==
PROVIDERS: Emergency Provider Emergency Medicine; PCP Family Medicine
DX: S22.080A Wedge compression fracture of T11-T12 vertebra, initial encounter for closed fracture (principal); Z79.82 Long term (current) use of aspirin; Z87.891 Personal history of nicotine dependence; I25.10 Atherosclerotic heart disease of native coronary artery without angina pectoris; E78.5 Hyperlipidemia, unspecified; I25.5 Ischemic cardiomyopathy; J44.9 Chronic obstructive pulmonary disease, unspecified; Z85.72 Personal history of non-Hodgkin lymphomas; Z95.1 Presence of aortocoronary bypass graft; X58.XXXA Exposure to other specified factors, initial encounter
CPT/HCPCS: 36415; 70450; 71045; 74177; 80053; 80307; 83605; 85025; 86140; 96374; 96375; 96376; 99285; J1100; J1170; J1885; Q9967

== ENCOUNTER 2023-10-11 18:00 | Emergency (ER) | payer MEDICAID, SELFPAY ==
[2023-10-11] VITALS (8 sets, daily range): BP systolic 90–153; BP diastolic 57–101; PULSE 78–114; RESP 12–22; TEMP 36.6–36.7; O2SAT 93–99
--- NOTE | 2023-10-11 18:11 | XRR_ITS ---
PROCEDURE INFORMATION: Exam: XR Chest Exam date and time: 10/11/2023 6:35 PM Age: 53 years old Clinical indication: Other: Tachycardia; Prior surgery; Surgery date: 1-6 months; Surgery type: Triple bypass TECHNIQUE: Imaging protocol: Radiologic exam of the chest. Views: 1 view. COMPARISON: CR (CHEST, ) 10/07/2023 1:54 AM FINDINGS: Tubes, catheters and devices: Atrial appendage closure device. Left anterior chest wall infusion port with its tip terminating in the SVC, unchanged. Lungs: Curvilinear bilateral opacities which can be seen with emphysematous lung changes. Pleural spaces: Unremarkable. No pleural effusion. No pneumothorax. Heart/Mediastinum: Unremarkable. No cardiomegaly. Bones/joints: Sternotomy wires are present. XR/XR chest 1V portable [id number] IMPRESSION: 1. No acute findings. 2. Emphysematous lung changes.
--- NOTE | 2023-10-11 18:11 | ECG_ITS ---
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 Measurements Intervals [place] Rate: 97 P: 72 NM: 176 QRS: 80 QRSD: 98 T: 71 QT: 395 QTc: 502 Interpretive Statements SINUS RHYTHM Compared to ECG 10/05/2023 08:05:31 Sinus tachycardia no longer present ST (T wave) deviation no longer present Electronically Signed On 10-11-2023 21:33:32 CDT by Claire Lopez M.D. [email or web address]
[2023-10-11 18:43] LABS: Basophils # 0.1 10^3/uL (0.0-0.1); Basophils % 0.7 %; Eosinophils # 0.1 10^3/uL (0.0-0.8); Eosinophils % 1.1 %; Hematocrit 36.1 % (36-47); Lymphocytes # 2.6 10^3/uL (0.8-4.8); Mean Corpuscular Hemoglobin 23.7 pg (27-33); Mean Corpuscular Volume 76.3 fl (85-98); Mean Platelet Volume 10.5 fL (7.4-10.4); Monocytes # 0.9 10^3/uL (0.2-0.9); Monocytes % 7.5 %; Neutrophils # 8.43 10^3/uL (1.8-7.7); Neutrophils % 69.1 %; Nucleated Red Blood Cells % 0 %; Platelet Count 319 10^3/cmm (157-399); Red Blood Count 4.73 10^6/uL (3.85-5.65); Red Cell Distribution Width 16.8 % (12.1-15.1); White Blood Count 12.19 10^3/uL (3.29-11.43)
--- NOTE | 2023-10-11 18:51 | W.ED.ARRPALP ---
HPI - Arrhythmia/Palpitations General: Chief Complaint: Arrhythmia/Palpitations Stated Complaint: Cant Sleep\Heart Beats Face Time Seen by Provider: 10/11/23 18:19 Source: patient Mode of arrival: ambulatory Limitations: no limitations History of Present Illness: Patient is a 53-year-old female presenting to the emergency department complaining of palpitations for the past few days. Patient recently seen in the emergency department multiple times diagnosed with compression fracture, states that she has been taking ibuprofen for this and is picking up prescription for hydrocodone tomorrow. She notes that at night when she tries to go to sleep, she feels her heart racing and this prevents her from sleeping. She clarifies that she has not had any sleep whatsoever for the past 3 nights. She states they feel like her whole body is vibrating, and she reports a cardiac history for which she follows Dr. Ashford and Dr. Carver. She denies history of anxiety, though on initial examination does appear very anxious. She denies any other symptoms at this time, does state that her back pain is still present. She does state that she is having the palpitations at this time. She recently had a CT of the abdomen pelvis a few days ago that was normal, and has multiple EKGs and chest x-rays over the past few days that have been unremarkable. MD complaint: palpitations Onset (ago): day(s) Duration: intermittent (Present now) Severity: moderate Context: other (Occurs when trying to go to sleep) Associated symptoms: Deny nausea or vomiting Review of Systems General: Reports: 10 or more systems reviewed and unremarkable except in HPI and below Const: Reports: change in sleep pattern; Denies: fever(s), chills or fatigue Eyes: Denies: change in vision ENMT: Denies: throat pain, ear or mastoid pain or nasal discharge Card: Reports: palpitations; Denies: chest pain, swelling of feet/ankles or lightheadedness Resp: Denies: dyspnea, productive cough or wheezing GI: Denies: abdominal pain, nausea, vomiting, diarrhea or constipation : Denies: flank pain, difficulty voiding, dysuria or urinary frequency Musc: Reports: back pain; Denies: neck pain or joint pain Skin/Breast: Denies: rash Neuro: Denies: headache(s), numbness in extremities or weakness in extremities PFSH ED PFSH: Medical History Hyperlipidemia CAD (coronary artery disease) Ischemic cardiomyopathy Acute on chronic respiratory failure with hypoxia and hypercapnia Psychiatric care MDD (major depressive disorder) Osteopenia Tachycardia COPD (chronic obstructive pulmonary disease) Osteoarthritis Non Hodgkin's lymphoma In remission since 2004 Surgical History History of lung biopsy Status post mitral valve annuloplasty History of coronary artery bypass graft x 3 History of aortic valve replacement History of lymph node biopsy Family History Other Cancer Chronic kidney disease (CKD) Hyperlipidemia Hypertension Psychiatric illness Stroke Suicide Social History Smoking and tobacco/nicotine status: former use of tobacco/nicotine Quit status (tobacco/nicotine): has quit using Year quit tobacco: 2017 Second hand smoke exposure: No Alcohol intake: current Alcohol intake frequency: holidays/special occasions only Alcohol type: hard liquor Substance/Drug Use: former Physical Exam Const: COMMON NORMALS: patient oriented x3 and no limitations GENERAL APPEARANCE: cooperative, well developed and anxious ORIENTATION/CONSCIOUSNESS: Yes awake, Yes oriented to person, Yes oriented to place and Yes oriented to time HENMT: COMMON NORMALS: normocephalic, atraumatic and hearing grossly normal bilaterally HEAD & SCALP: normocephalic and atraumatic Eye: COMMON NORMALS: Equal, round and reactive pupils present, EOMs intact bilaterally and conjunctivae normal CONJUNCTIVA: Yes conjunctivae normal PUPIL: Yes Equal, round and reactive pupils present Neck/C-Spine: COMMON NORMALS: full ROM, supple and no JVD Resp: COMMON NORMALS: normal respiratory effort, No retractions, No use of accessory muscles and clear to auscultation bilaterally AUSCULTATION: clear to auscultation bilaterally Cardio: COMMON NORMALS: no JVD, regular rate, regular rhythm, No clicks present (Cardio), No rub (Cardio) and Peripheral pulses 2+ throughout RATE: regular rate RHYTHM: regular rhythm HEART SOUNDS: Murmur heart sound present systolic Location: right sternal border Intensity: II/ PERIPHERAL PULSES: Peripheral pulses 2+ throughout GI: COMMON NORMALS: Normal to inspection, nondistended, normoactive bowel sounds present, Soft to palpation and non-tender AUSCULTATION: Yes normoactive bowel sounds PALPATION: Yes Soft to palpation RECTAL EXAM: deferred Back/Pelvis: COMMON NORMALS: thoracic and lumbar spine normal to inspection OTHER: Pain with range of motion of the back Extremity: COMMON NORMALS: normal to inspection, full ROM and capillary refill normal Neuro: COMMON NORMALS: patient oriented x3, moves all extremities, no focal motor deficits and no sensory deficits noted SENSORIUM/ORIENTATION: Yes oriented to person, Yes oriented to place and Yes oriented to time Psych: COMMON NORMALS: mental status grossly normal and Normal thought process present THOUGHT PROCESS: Normal thought process present Skin: COMMON NORMALS: no rashes or lesions noted GENERAL SKIN EXAM: no rashes or lesions noted Course Vital Signs: Vital signs: Vital Signs Temperature 97.8 F 10/12/23 00:21 Pulse Rate 78 10/12/23 00:21 Respiratory Rate 16 10/12/23 00:21 Blood Pressure 127/83 10/12/23 00:21 Pulse Oximetry 93 10/12/23 00:21 Oxygen Delivery Me thod Room Air 10/11/23 23:30 MDM - Arrhythmia/Palpitations Medical Decision Making Patient has multiple prior visits. Her complaints today were some palpitations over the past few days, also noting she has not slept over that same period of time. She did appear very anxious on initial examination. Was recently seen here in the emergency department and diagnosed with a vertebral stress fracture, states she is only taken ibuprofen for pain. Her initial EKG showed sinus bradycardia rate 57 with no signs of a STEMI. Follow-up EKG, now in sinus rhythm, again had no signs of a STEMI. Her labs were all baseline compared to prior aside from a potassium of 2.7. She was given 80 mill equivalents of potassium and this was rechecked later and found to be normalized at 3.8. A D-dimer was obtained, which was found to be elevated. CTA then obtained to rule out a PE, there were no signs of PE. She has not had any shortness of breath or chest pain throughout the ED course, and upon recheck states that she is still feeling anxious. At this time she is giving Ativan, and after recheck states she is ready to go home. 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 In addition to this she is to follow-up with orthopedics for her stress fracture. At this time I believe that her palpitations could be related to anxiety versus sleep deprivation. Also of note with her labs her thyroid was found to be elevated when prior to last TSH, and she is instructed to follow-up with primary care to address this. She also is to have her potassium rechecked in a week, will send home prescription with a 5-day course of p.o. potassium. I do not believe her palpitations at this time to be of cardiac nature, however she is thoroughly instructed to follow-up with primary care for further outpatient testing. I did have a thorough conversation with the patient in regards to reasons to return and signs to watch for, she endorses understanding and states she is ready to go home. This case was discussed with supervising ED physician, Dr. Aguilar, who agrees with disposition at this time. Lab Data 10/11/23 18:30 10/11/23 23:27 Radiology Impressions Chest X-Ray 10/11/23 18:11 IMPRESSION: 1. No acute findings. 2. Emphysematous lung changes. Chest CTA 10/11/23 20:12 IMPRESSION: 1. No evidence of pulmonary embolism. 2. Emphysema, bronchiectasis, right upper lobe postsurgical changes with right apical scarring and chronic right middle lobe collapse. 3. Atherosclerotic vascular disease with prior CABG and aortic and mitral valve repair. 4. Large hiatal hernia. COMMENTS: The presence of pulmonary emphysema on CT is an independent risk factor for lung cancer. In the absence of a history or active diagnosis of lung cancer, it is recommended that this patient with emphysema be evaluated for enrollment in a low dose CT lung cancer screening program. Laboratory Results WBC 12.19 10^3/uL (3.29-11.43) H 10/11/23 18:30 RBC 4.73 10^6/uL (3.85-5.65) 10/11/23 18:30 Hgb 11.20 g/dL (11.27-16.99) L 10/11/23 18:30 Hct 36.1 % (36-47) 10/11/23 18:30 MCV 76.3 fl (85-98) L 10/11/23 18:30 MCH 23.7 pg (27-33) L 10/11/23 18:30 MCHC 31.0 g/dL (30-55) 10/11/23 18:30 RDW 16.8 % (12.1-15.1) H 10/11/23 18:30 Plt Count 319 10^3/cmm (157-399) 10/11/23 18:30 MPV 10.5 fL (7.4-10.4) H 10/11/23 18:30 Neut % (Auto) 69.1 % 10/11/23 18:30 Lymph % (Auto) 21.0 % 10/11/23 18:30 [place] % (Auto) 7.5 % 10/11/23 18:30 Eos % (Auto) 1.1 % 10/11/23 18:30 Baso % (Auto) 0.7 % 10/11/23 18:30 Neut # (Auto) 8.43 10^3/uL (1.8-7.7) H 10/11/23 18:30 Lymph # (Auto) 2.6 10^3/uL (0.8-4.8) 10/11/23 18:30 [place] # (Auto) 0.9 10^3/uL (0.2-0.9) 10/11/23 18:30 Eos # (Auto) 0.1 10^3/uL (0.0-0.8) 10/11/23 18:30 Baso # (Auto) 0.1 10^3/uL (0.0-0.1) 10/11/23 18:30 Nucleated RBC % (auto) 0 % 10/11/23 18: Nucleated RBCs # 0.0 /100WBC 10/11/23 18:30 D-Dimer 2.65 ug/mLFEU (0-0.59) H 10/11/23 18:30 Sodium 139 mmol/L (136-145) 10/11/23 18:30 Potassium 3.8 mmol/L (3.5-5.1) 10/11/23 23:27 Chloride 97 mmol/L (98-107) L 10/11/23 18:30 Carbon Dioxide 24 mmol/L (22-29) 10/11/23 18:30 Anion Gap 20.7 (5-19) H 10/11/23 18:30 BUN 16 mg/dL (6-20) 10/11/23 18:30 Creatinine 0.9 mg/dL (0.5-0.9) 10/11/23 18:30 GFR Calculation 65.0 mL/min (90-130) L 10/11/23 18:30 Glucose 119 mg/dL (65-115) H 10/11/23 18:30 Calculated Osmolality 290 mOsm/kg (285-295) 10/11/23 18:30 Calcium 8.4 mg/dL (8.5-10.5) L 10/11/23 18:30 Magnesium 1.3 mg/dL (1.7-2.3) L 10/11/23 19:30 Total Bilirubin 0.3 mg/dL (0.15-1.2) 10/11/23 18:30 AST 15 U/L (0-32) 10/11/23 18:30 ALT 11 U/L (0-33) 10/11/23 18:30 Alkaline Phosphatase 114 U/L (35-105) H 10/11/23 18:30 Troponin T Baseline 13 ng/L (0-10) H 10/11/23 18:30 Troponin T 120 Minute 11.02 ng/L (0-10) H 10/11/23 20:26 Delta Troponin T -1.98 ABS# (0-10) L 10/11/23 20:26 NT-Pro-B Natriuret Pep 294 pg/mL (0-125) H 10/11/23 18:30 Total Protein 6.6 g/dL (6.6-8.7) 10/11/23 18:30 Albumin 4.6 g/dL (3.5-5.2) 10/11/23 18:30 Globulin 2.0 g/dL (1.3-4.6) 10/11/23 18:30 TSH 9.05 uIU/mL (0.27-4.20) H 10/11/23 18:30 All radiology interpretation(s) finalized by discharge Discharge Plan Discharge Patient Disposition: Home Clinical Impression: Hypokalemia, Palpitations, Anxiety, Sleep deprivation Condition: Stable Prescriptions: New potassium chloride 20 mEq tablet extended release 20 meq PO 5XD Qty: 5 0RF No Action (DME) Portable O2 See Rx Instructions .Route .MEDSUPPLY Qty: 1 0RF Rx Instructions: As directed aspirin [Adult Low Dose Aspirin] 81 mg tablet,delayed release (DR/EC) 81 mg PO QAM hydrocodone-acetaminophen 7.5-325 mg tablet 1 tab PO Q8H PRN (Reason: pain) 7 Days Qty: 21 0RF nicotine 21 mg/24 hr patch 24 hour 1 patch transdermal Q24H Qty: 28 2RF Spiriva with HandiHaler 18 mcg capsule, w/inhalation device 1 cap inhalation DAILY Qty: 60 2RF Rx Instructions: puncture 1 cap using device; one dose = 2 inhalations 340 B furosemide 40 mg tablet 40 mg PO DAILY Qty: 90 3RF metoprolol succinate 50 mg tablet extended release 24 hr 50 mg PO BID Qty: 180 3RF nicotine (polacrilex) 4 mg Lozenge 4 mg BUCCAL Q4H PRN (Reason: CESSATION) atorvastatin 80 mg tablet 80 mg PO QPM Seroquel 300 mg tablet 300 mg PO BEDTIME sertraline 100 mg tablet 100 mg PO QAM omeprazole 20 mg capsule,delayed release(DR/EC) 20 mg PO DAILY Symbicort 160-4.5 mcg/actuation HFA aerosol inhaler 2 puff inhalation BID hydrocodone-acetaminophen 5-325 mg tablet 1 tab PO Q6H PRN (Reason: pain) Qty: 15 0RF dexamethasone 6 mg tablet 6 mg PO DAILY 5 Days Qty: 5 0RF diclofenac sodium 50 mg tablet,delayed release (DR/EC) 50 mg PO Q12H Qty: 20 0RF oxycodone 5 mg tablet 5 mg PO Q8H PRN (Reason: pain) Qty: 20 0RF Discharge Orders: Discharge ED (Routine); Ordered 10/12/23 Ordered By: Jorge Young Referrals: Dylan Guan MD [Primary Care Provider] - Discharge Diet: As Directed Discharge Activity: Increase activity as tolerated Patient Instructions: Heart Palpitations (ED), Anxiety (ED), Opioid Safety, Pain Management, Sleep Activity Restrictions/Additional Instructions: Please call your chopping machine operator tomorrow to schedule an appointment as discussed. Take potassium and have your potassium rechecked with primary care in 1 week. In addition, discuss your thyroid labs. Continue follow-ups with orthopedics and neurology as already planned. You may continue the rest of your medications at home as normal. Please try to increase your sleep, getting at least 8 hours per night. Drink plenty of fluids. If you develop any new or concerning symptoms, please return to the emergency department for reevaluation. 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
[2023-10-11 19:01] LABS: Troponin(5th) Baseline 13 ng/L (0-10)
[2023-10-11 19:09] LABS: Alanine Aminotransferase 11 U/L (0-33); Albumin Level 4.6 g/dL (3.5-5.2); Alkaline Phosphatase 114 U/L (35-105); Anion Gap 20.7 (5-19); Aspartate Amino Transferase 15 U/L (0-32); Blood Urea Nitrogen 16 mg/dL (6-20); Calcium 8.4 mg/dL (8.5-10.5); Carbon Dioxide 24 mmol/L (22-29); Chloride 97 mmol/L (98-107); Creatinine Clr Calc Pharmacy 65.3992; Glucose 119 mg/dL (65-115); NT Pro B Type Natriuretic Pept 294 pg/mL (0-125); Osmolality Calculated 290 mOsm/kg (285-295); Sodium 139 mmol/L (136-145); Thyroid Stimulating Hormone 9.05 uIU/mL (0.27-4.20); Total Bilirubin 0.3 mg/dL (0.15-1.2); Total Protein 6.6 g/dL (6.6-8.7)
[2023-10-11 19:29] LABS: Potassium 2.7 mmol/L (3.5-5.1)
[2023-10-11] MEDS: potassium chloride ER 20 mEq Tablet 40 MEQ PO ×2 (19:39)
[2023-10-11 19:55] LABS: D Dimer 2.65 ug/mLFEU (0-0.59)
[2023-10-11 19:57] LABS: Magnesium 1.3 mg/dL (1.7-2.3)
--- NOTE | 2023-10-11 20:06 | ECG_ITS ---
[facility] Test Date: 2023-10-11 Pat Name: Nurys Patel Department: Room: Gender: Female Compass Operator: : 1970 Requested By: Destin Aguilar Order Number: [id number] Emmett MD: Claire Lopez M.D. Measurements Intervals [place] Rate: 97 P: 81 MA: 172 QRS: 76 QRSD: 97 T: 73 QT: 385 QTc: 490 Interpretive Statements SINUS RHYTHM Compared to ECG 10/11/2023 18:16:07 No significant changes Electronically Signed On 10-11-2023 21:40:05 CDT by Claire Lopez M.D. [id number]
--- NOTE | 2023-10-11 20:12 | CTR_ITS ---
PROCEDURE INFORMATION: Exam: CTA Chest With Contrast Exam date and time: 10/11/2023 9:50 PM Age: 53 years old Clinical indication: Abnormal findings; Abnormal diagnostic tests; Elevated d-dimer; Prior surgery; Surgery date: 6+ months; Surgery type: Bypass; Additional info: Elevated d-dimer, arrhythmia TECHNIQUE: Imaging protocol: Computed tomographic angiography of the chest with contrast. Exam focused on the arteries. 3D rendering (Not supervised by radiologist): MIP and/or 3D reconstructed images were created by the technologist. Radiation optimization: All CT scans at this facility use at least one of these dose optimization techniques: automated exposure control; mA and/or kV adjustment per patient size (includes targeted exams where dose is matched to clinical indication); or iterative reconstruction. Contrast material: OMNI 350; Contrast volume: 80 ml; Contrast route: INTRAVENOUS (IV); COMPARISON: 1. CR XR chest 1V portable [id number] 10/11/2023 6:[address] thoracic spin wo con* [id number] 10/05/2023 8:20 AM RADIATION DOSE METRICS: Total DLP (mGy-cm): 267 FINDINGS: Tubes, catheters and devices: Left subclavian infusion port in place. Pulmonary arteries: No vascular intraluminal filling defects to suggest pulmonary embolism. Aorta: Atherosclerotic tortuosity and calcification of the thoracic aorta. No aortic aneurysm or dissection. Lungs: Emphysema, bronchiectasis, right upper lobe postsurgical changes with right apical scarring and chronic right middle lobe collapse. A few tiny punctate calcified granulomas. Pleural spaces: Right apical pleural scarring. No pleural effusion. No pneumothorax. Heart: Heart size within normal limits. Aortic and mitral valve prostheses. Left atrial appendage closure device/clip in place. Coronary arteries: Prior CABG. Lymph nodes: Small nonspecific mediastinal lymph nodes. Diaphragm: Large hiatal hernia. Bones/joints: Redemonstrated recent or healing T11 vertebral body fracture. Sternotomy wires are seen. Soft tissues: No significant soft tissue abnormalities. CT/CT angio chest PE protcl [id number] IMPRESSION: 1. No evidence of pulmonary embolism. 2. Emphysema, bronchiectasis, right upper lobe postsurgical changes with right apical scarring and chronic right middle lobe collapse. 3. Atherosclerotic vascular disease with prior CABG and aortic and mitral valve repair. 4. Large hiatal hernia. COMMENTS: The presence of pulmonary emphysema on CT is an independent risk factor for lung cancer. In the absence of a history or active diagnosis of lung cancer, it is recommended that this patient with emphysema be evaluated for enrollment in a low dose CT lung cancer screening program.
[2023-10-11 20:51] LABS: Troponin 5 2HR 11.02 ng/L (0-10)
[2023-10-11 20:52] LABS: Troponin 5 2HR Delta -1.98 ABS# (0-10)
[2023-10-11] MEDS: iohexol 350 mg/mL 500 mL Btl (per mL) IV (21:55)
[2023-10-11] MEDS: HYDROcodone-acetaminophen 7.5-325 mg Tablet 1 TAB PO (22:59)
[2023-10-11] MEDS: LORazepam 1 mg Tablet PO (23:41)
[2023-10-11 23:55] LABS: Potassium 3.8 mmol/L (3.5-5.1)
[2023-10-12 00:21] VITALS: BP 127/83; PULSE 78; RESP 16; TEMP 36.6; O2SAT 93
== END 2023-10-12 00:23 | disposition home or self-care (01) ==
PROVIDERS: Emergency Medicine; Emergency Provider Physician Assistant; PCP Family Medicine
DX: E87.6 Hypokalemia (principal); R00.2 Palpitations; F41.9 Anxiety disorder, unspecified; Z72.820 Sleep deprivation; J43.9 Emphysema, unspecified; I25.10 Atherosclerotic heart disease of native coronary artery without angina pectoris; E78.5 Hyperlipidemia, unspecified; J44.9 Chronic obstructive pulmonary disease, unspecified; Z79.899 Other long term (current) drug therapy; Z79.82 Long term (current) use of aspirin; Z87.891 Personal history of nicotine dependence
CPT/HCPCS: 36415; 71045; 71275; 80053; 83735; 83880; 84132; 84443; 84484; 85025; 85378; 93005; 99285; Q9967

== ENCOUNTER → 2023-10-18 08:13 | Outpatient (BNVA) | payer MEDICAID, SELFPAY | PROVIDERS: PCP Family Medicine; Visit Provider Orthopaedic Surgery | DX: M54.6 Pain in thoracic spine (principal); G89.29 Other chronic pain | CPT/HCPCS: 72072; 99203 ==

== ENCOUNTER → 2023-11-08 08:34 | Outpatient (BNVA) | payer MEDICAID, SELFPAY | PROVIDERS: PCP Family Medicine; Visit Provider Orthopaedic Surgery | DX: S22.000A Wedge compression fracture of unspecified thoracic vertebra, initial encounter for closed fracture (principal); X58.XXXA Exposure to other specified factors, initial encounter | CPT/HCPCS: 72072; 99213 ==

== ENCOUNTER → 2023-12-20 08:17 | Outpatient (BNVA) | payer MEDICAID, SELFPAY | PROVIDERS: PCP Family Medicine; Visit Provider Orthopaedic Surgery | DX: S22.000A Wedge compression fracture of unspecified thoracic vertebra, initial encounter for closed fracture (principal); X58.XXXA Exposure to other specified factors, initial encounter | CPT/HCPCS: 72072; 99213 ==

== ENCOUNTER → 2024-01-12 15:00 | Outpatient (BNVA) | payer MEDICAID, SELFPAY | PROVIDERS: PCP Family Medicine; Visit Provider Internal Medicine Cardiovascular Disease | DX: Z95.2 Presence of prosthetic heart valve (principal); Z95.1 Presence of aortocoronary bypass graft; R00.2 Palpitations | CPT/HCPCS: 99214 ==

== ENCOUNTER 2024-02-09 06:52 | Outpatient (CLI) | payer MEDICAID, SELFPAY ==
--- NOTE | 2024-02-09 07:00 | USCV_ITS ---
Nurys Patel Age: 53 Gender: F : 1970 Exam Date: 02/09/2024 07:06 Ordering Phys: Cortez Davies MD ([email or web address]) Technologist: Exam Location: [facility] – [place] Indication: cp sob BP: 125 / 73 HR: 88 Rhythm: Sinus Technical Quality: Adequate MEASUREMENTS (Male / Female) Normal Values 2D ECHO LV Diastolic Diameter PLAX 3.3 cm 4.2 - 5.9 / 3.9 - 5.3 cm IVS Diastolic Thickness 1.2 cm 0.6 - 1.0 / 0.6 - 0.9 cm IVS Systolic Thickness 1.2 cm LVPW Diastolic Thickness 0.9 cm 0.6 - 1.0 / 0.6 - 0.9 cm LVPW Systolic Thickness 1.3 cm LVOT Diameter 1.7 cm LV Ejection Fraction 2D Teich 71.8 % LV Ejection Fraction MOD 4C 53.1 % LV Ejection Fraction MOD 2C 54.1 % LV Ejection Fraction 2C AL 54.7 % LA Diameter 3.1 cm RA Systolic Volume 4C AL 75.8 ml RA Systolic Volume 4C MOD 72.8 ml Aorta at Sinotubular Diameter 2.7 cm M-MODE LA Ao Ratio MM 1.3 AV Cusp Separation MM 1.4 cm DOPPLER AV Peak Velocity 227.3 cm/s LVOT Peak Velocity 69.0 cm/s AV Area Cont Eq vti 0.8 cm squared AV Area Cont Eq pk 0.7 cm squared MV Peak Velocity 193.0 cm/s MV Area PHT 4.7 cm squared Mitral E to A Ratio 1.6 TR Peak Velocity 293.0 cm/s TR Peak Gradient 34.3 mmHg TV Peak E Velocity 117.0 cm/s Right Atrial Pressure 3.0 mmHg Pulmonary Artery Systolic Pressu 37.3 mmHg PV Peak Velocity 82.0 cm/s FINDINGS Left Ventricle Normal left ventricular size, systolic function and wall thickness, with no regional wall motion abnormalities. Left ventricular ejection fraction is estimated at 60 %. Grade II/IV diastolic dysfunction, moderately elevated filling pressures. Right Ventricle The right ventricle is normal in size and function. Right Atrium The right atrium is normal in size. Left Atrium Moderately increased left atrial size. Mitral Valve Moderately thickened mitral valve. Severe mitral annular calcification. No mitral valve regurgitation. Aortic Valve Moderate aortic valve calcification. No aortic valve stenosis. Trace aortic valve regurgitation. Tricuspid Valve Trace tricuspid valve regurgitation. Pulmonic Valve Structurally normal pulmonic valve without significant stenosis. There is no pulmonic regurgitation. Pericardium Normal pericardium without effusion. Aorta Normal ascending aorta dimension. IVC The inferior vena cava appears normal. CONCLUSIONS Normal left ventricular size, systolic function and wall thickness, with no regional wall motion abnormalities. Left ventricular ejection fraction is estimated at 60 %. Grade II/IV diastolic dysfunction, moderately elevated filling pressures. Moderately thickened mitral valve. Severe mitral annular calcification. No mitral valve regurgitation. Moderate aortic valve calcification. No aortic valve stenosis. Trace aortic valve regurgitation. There is no pericardial effusion. Pulmonary artery systolic pressure is within normal limits. Right atrial pressure is around 5 mm of mercury. Cortez Davies MD (Electronically Signed) Final Date: 09 February 2024 21:26 S
== END 2024-02-09 06:53 | disposition home or self-care (01) ==
LOC: RAD 06:52
PROVIDERS: PCP Family Medicine; Visit Provider Internal Medicine Cardiovascular Disease
DX: I50.30 Unspecified diastolic (congestive) heart failure (principal); I51.7 Cardiomegaly; I34.81 Nonrheumatic mitral (valve) annulus calcification; Z95.2 Presence of prosthetic heart valve
CPT/HCPCS: 93306

== ENCOUNTER → 2024-06-18 08:57 | Outpatient (BNVA) | payer MEDICARE, MEDICAID, SELFPAY | PROVIDERS: PCP Family Medicine; Visit Provider Nurse Practitioner Family | DX: Z95.2 Presence of prosthetic heart valve (principal); Z95.1 Presence of aortocoronary bypass graft; R00.2 Palpitations | CPT/HCPCS: 99213 ==

== ENCOUNTER → 2024-10-12 08:54 | Outpatient (BNVA) | payer MEDICARE, MEDICAID, SELFPAY | PROVIDERS: PCP Family Medicine; Visit Provider Nurse Practitioner Family | DX: I25.10 Atherosclerotic heart disease of native coronary artery without angina pectoris (principal); Z79.82 Long term (current) use of aspirin; Z95.2 Presence of prosthetic heart valve; Z95.1 Presence of aortocoronary bypass graft; Z87.891 Personal history of nicotine dependence | CPT/HCPCS: 36415; 80048; 83880; 84439; 84443; 85025; 99213 ==

== ENCOUNTER 2024-11-09 09:43 | Outpatient (CLI) | payer MEDICARE, MEDICAID, SELFPAY ==
--- NOTE | 2024-11-09 09:51 | USCV_ITS ---
Nurys Patel Age: 54 Gender: F : 1970 Exam Date: 11/09/2024 10:23 Ordering Phys: Amaris Burger NP Technologist: Rm Byers [place] [facility] [place]: sob BP: 107 / 66 HR: 86 Rhythm: Sinus Technical Quality: Adequate MEASUREMENTS (Male / Female) Normal Values 2D ECHO LV Diastolic Diameter PLAX 3.7 cm 4.2 - 5.9 / 3.9 - 5.3 cm IVS Diastolic Thickness 0.9 cm 0.6 - 1.0 / 0.6 - 0.9 cm IVS Systolic Thickness 1.0 cm LVPW Diastolic Thickness 1.0 cm 0.6 - 1.0 / 0.6 - 0.9 cm LVPW Systolic Thickness 1.1 cm LVOT Diameter 1.9 cm LV Ejection Fraction 2D Teich 59.8 % LV Ejection Fraction MOD 4C 50.5 % LV Ejection Fraction MOD 2C 62.5 % LV Ejection Fraction 2C AL 61.1 % LA Diameter 3.4 cm RA Systolic Volume 4C AL 29.1 ml RA Systolic Volume 4C MOD 28.8 ml LA Sys Volume AL 29.5 cm cubed LA Sys Volume Index AL 17.9 cm cubed/m squared Aorta at Sinotubular Diameter 1.6 cm IVC Diameter 1.2 cm M-MODE LA Ao Ratio MM 1.5 AV Cusp Separation MM 1.3 cm DOPPLER AV Peak Velocity 236.3 cm/s LVOT Peak Velocity 76.0 cm/s AV Area Cont Eq vti 1.0 cm squared AV Area Cont Eq pk 0.9 cm squared MV Peak Velocity 124.0 cm/s MV Area PHT 7.6 cm squared Mitral E to A Ratio 1.5 TR Peak Velocity 367.0 cm/s TR Peak Gradient 53.9 mmHg TR Mean Velocity 297.0 cm/s TR Mean Gradient 38.0 mmHg TR Velocity Time Integral 91.1 cm PV Peak Velocity 78.3 cm/s RV Ejection Time 0.3 s FINDINGS Left Ventricle Normal left ventricular size, systolic function with no regional wall motion abnormalities. Normal left ventricular size and systolic function, EF 50-55% Right Ventricle Normal right ventricular size and systolic function. Right Atrium Normal right atrial size. Left Atrium Normal left atrial size. Mitral Valve Severe mitral annular calcification. Mild mitral valve regurgitation. Aortic Valve Bioprosthetic aortic valve. Moderate aortic stenosis with aortic valve area of 1cm2 and mean gradient across aortic valve of 12mmHg. DVI is normal and is 0.31. Tricuspid Valve Insufficent TR jet to calculate RVSP Pulmonic Valve Not well visualized Pericardium Normal Aorta Normal in size IVC Appears to be normal CONCLUSIONS LV systolic function is normal with EF of 50-55% Mild mitral valve regurgitation. Bioprosthetic aortic valve. Moderate aortic stenosis with aortic valve area of 1cm2 and mean gradient across aortic valve of 12mmHg. DVI is normal and is 0.31. Ambrose Vo MD (Electronically Signed) Final Date: 11 November 2024 15:33 S
== END 2024-11-09 09:44 | disposition home or self-care (01) ==
LOC: RAD 09:44
PROVIDERS: PCP Family Medicine; Visit Provider Nurse Practitioner Family
DX: R06.02 Shortness of breath (principal); I35.0 Nonrheumatic aortic (valve) stenosis; I34.0 Nonrheumatic mitral (valve) insufficiency; Z95.2 Presence of prosthetic heart valve
CPT/HCPCS: 93306

== ENCOUNTER 2025-01-15 15:45 | Outpatient (CLI) | payer MEDICARE, MEDICAID, SELFPAY | END 2025-01-15 15:46 | disposition home or self-care (01) | LOC: RAD 01-25 08:45 | PROVIDERS: PCP Family Medicine; Visit Provider Internal Medicine Cardiovascular Disease | DX: R06.02 Shortness of breath (principal); R91.8 Other nonspecific abnormal finding of lung field; Z95.2 Presence of prosthetic heart valve; Z98.890 Other specified postprocedural states; K44.9 Diaphragmatic hernia without obstruction or gangrene; R93.89 Abnormal findings on diagnostic imaging of other specified body structures; Z96.89 Presence of other specified functional implants | CPT/HCPCS: 71046; 99214 ==

== ENCOUNTER → 2025-02-20 09:37 | Outpatient (BNVA) | payer MEDICARE, MEDICAID, SELFPAY | PROVIDERS: PCP Family Medicine; Visit Provider Nurse Practitioner Family | DX: I25.10 Atherosclerotic heart disease of native coronary artery without angina pectoris (principal); I35.0 Nonrheumatic aortic (valve) stenosis; R00.2 Palpitations; R07.9 Chest pain, unspecified; C85.90 Non-Hodgkin lymphoma, unspecified, unspecified site; R09.89 Other specified symptoms and signs involving the circulatory and respiratory systems; Z95.1 Presence of aortocoronary bypass graft; Z95.2 Presence of prosthetic heart valve; Z87.891 Personal history of nicotine dependence | CPT/HCPCS: 93005; 99214 ==

== ENCOUNTER 2025-02-27 09:58 | Outpatient (CLI) | payer MEDICARE, MEDICAID, SELFPAY ==
--- NOTE | 2025-02-27 10:30 | USCV_ITS ---
Nurys Patel Age: 54 Gender: F : 1970 Exam Date: 02/27/2025 10:29 Ordering Phys: Amaris Burger NP Technologist: SHAMIR [place] [facility] [place]: bruit Risk Factors: Previous Vascular Surgery: Right Brachial BP: / Left Brachial BP: / Right Left Velocity (cm/s) Spectral Plaque Velocity (cm/s) Spectral Plaque Syst/Diast Broadening Syst/Diast Broadening 47.80/ 12.80 Prox CCA 58.10 / 15.90 51.70/ 12.80 Mid CCA 61.60 / 17.50 49.10/ 15.40 Distal CCA 60.30 / 16.40 32.60/ 9.90 Prox ICA 58.90 / 21.30 49.60/ 19.10 Mid ICA 42.80 / 18.50 50.50/ 16.80 Distal ICA 65.60 / 25.20 71.00 ECA 77.80 1.00 ICA/CCA 1.10 Antegrade Vertebral Antegrade 35.20/ 7.50 cm/s 46.80/ 16.50 cm/s Tri Subclavian Tri 47.00 103.2 0 CONCLUSIONS Right ICA stenosis <50%. Moderate atheromatous plaque right carotid bulb/ICA. Left ICA stenosis <50%. Moderate atheromatous plaque left carotid bulb/ICA. Normal antegrade Doppler flow noted in the right vertebral artery. Normal antegrade Doppler flow noted in the left vertebral artery. Luke Lindo MD (Electronically Signed) Final Date: 27 February 2025 13:20 S
== END 2025-02-27 09:59 | disposition home or self-care (01) ==
LOC: RAD 10:00
PROVIDERS: PCP Family Medicine; Visit Provider Nurse Practitioner Family
DX: R09.89 Other specified symptoms and signs involving the circulatory and respiratory systems (principal); I65.23 Occlusion and stenosis of bilateral carotid arteries
CPT/HCPCS: 93880

== ENCOUNTER 2025-03-04 08:46 | Outpatient (CLI) | payer MEDICARE, MEDICAID, SELFPAY ==
[2025-03-04 09:44] VITALS: BMI 23.6
--- NOTE | 2025-03-04 09:44 | ECG_ITS ---
[employer] Test Date: 2025-03-04 Pat Name: Nurys Patel Department: Room: Gender: Female Cereal Popper: : 1970 Requested By: Amaris Burger Order Number: [id number] Emmett MD: AFSHAN FENTON Interpretive Statements Lung unchanged pre/post procedure; Intraprocedure shortess of breath; Symptoms resoled by discharge NOTE: Please note that this is the electrocardiogram portion of the Lexiscan/Sestamibi stress test. The perfusion scan will be documented separately. DATA: Baseline heart rate was 121 beats per minute. Baseline blood pressure was 143/78 millimeters of mercury. Target heart rate was 164. Maximum heart rate achieved was 130. which was 79% of the predicted target heart rate. Maximum blood pressure was 143/80 millimeters of mercury. The reason for ending the test was completion of the protocol. The patient did not experience any symptoms. ELECTROCARDIOGRAM: BASELINE: Sinus tachycardia. Normal axis. Nonspecific inferolateral ST depression EXERCISE: After Lexiscan injection, no significant ST-T changes suggestive of ischemic noted. No arrhythmia noted. CONCLUSION: Please note due to baseline abnormality of the EKG specificity and sensitivity of the EKG portion of LexiScan MIBI stress test will be low 1. EKG not suggestive of ischemia 2. Lexiscan injection unremarkable. 3. Perfusion scan will be documented separately. Electronically Signed On 03-10-2025 18:05:39 [employer]ODUCTIVE HE[employer] ASSISTANT by AFSHAN FENTON [email or web address]
--- NOTE | 2025-03-04 09:44 | NMCV_ITS ---
NM erick perf SPECT r/s* 02021 Nurys Patel Age: 54 Gender: F : 1970 Exam Date: 03/04/2025 09:53 Ordering Phys: Amaris Burger NP Technologist: JJ Boone Exam Location: [facility] Indications: cp STRESS TEST Please see separate stress test [facility] for full findings IMAGE PROTOCOL Rest/Stress 1 Lexiscan Day Radiopharmaceutical Dose (mCi) Administration Site Administered by Rest: Tc-99m 10.8 IV Hoa Blackman, TARIFF SUPERVISOR Sestamibi Stress:Tc-99m 32.4 IV Hoa Blackman, TARIFF SUPERVISOR Sestamibi Rest: 04-Mar-2025 60 Discovery 630 Stress: 04-Mar-2025 30 Discovery 630 0.4mg Lexiscan. Supine position only as patient was unable to lay prone. SPECT RESULTS Technical Quality: Good Raw Data Analysis: Normal Image Corrections: No attenuation or motion correction applied Summed Stress Score: 4 Summed Rest Score: 4 Summed Difference Score: 0 PERFUSION FINDINGS SPECT images demonstrate homogeneous tracer distribution throughout the myocardium. FUNCTIONAL RESULTS (calculated via Gated SPECT) Stress Image LV EF (%): 81 Stress EDV (mL):43 TID: 0.95 Stress ESV (mL):8 FUNCTIONAL FINDINGS: There is normal left ventricular systolic function. IMPRESSIONS Myocardial perfusion imaging is normal. Cortez Davies MD (Electronically Signed) Final Date: 06 March 2025 08:10 S
--- NOTE | 2025-03-04 10:51 | PC.NURSE ---
pt unable to complete treadmill stress test, verbal order given by provider to change to lexiscan
== END 2025-03-04 08:47 | disposition home or self-care (01) ==
LOC: CDL 08:47
PROVIDERS: PCP Family Medicine; Visit Provider Nurse Practitioner Family
DX: R07.9 Chest pain, unspecified (principal)
CPT/HCPCS: 36415; 78452; 96374; A9500; J2785